=== PATIENT | male | born 1955 | race Caucasian/White ===

== ENCOUNTER 2017-10-21 04:19 | Emergency (ER) | payer SELFPAY ==
[2017-10-21] MEDS ORDERED: OXYMETAZOLINE HCL 0.05% NASAL SPRAY 15 ML BOTTLE NASL ONE (04:32)
--- NOTE | 2017-10-21 04:40 | ER Document Report ---
ED General - General Chief Complaint: Nose Bleed Stated Complaint: NOSE BLEED,BLOOD PRESSURE PROBLEMS Time Seen by Provider: 10/21/17 04:27 TRAVEL OUTSIDE OF THE [place] IN LAST 30 DAYS: No - HPI Notes: Patient is a 62-year-old male with a history of hypertension, not medicated, who presents to the ED complaining of a nosebleed that he has been unsuccessful at stopping that started about 4 hours ago. Patient states that he did have a nosebleed around 9 AM yesterday, but that stopped soon after. Patient states he otherwise feels well. He has been eating and drinking without difficulties. He is urinating normally and having normal bowel moods. He does not have any concern or complaint of pain. Denies any drug allergies. He is not on any blood thinning medications. Denies any headache, fever, head injury, neck pain , changes in vision/speech/mentation/hearing, URI, sore throat, chest pain, palpitations, syncope, cough, shortness of breath, wheeze, dyspnea, abdominal pain, nausea/vomiting/diarrhea, urinary retention, dysuria, hematuria, numbness/ tingling, muscle paralysis/weakness, or rash. - Related Data Allergies/Adverse Reactions: aspirin Allergy (Verified 10/21/17 04:35) NSAIDS (Non-Steroidal Anti-Inflamma Allergy (Verified 10/21/17 04:35) Past Medical History - Social History Smoking Status: Unknown if Ever Smoked Family History: Reviewed & Not Pertinent Patient has suicidal ideation: No Patient has homicidal ideation: No - Past Medical History Cardiac Medical History: Reports: Hx Hypertension Renal/ Medical History: Denies: Hx Peritoneal Dialysis Review of Systems - Review of Systems -: Yes All other systems reviewed and negative Physical Exam - Vital signs Vitals: Resp BP Pulse Ox 20 171/105 H 95 10/21/17 04:49 10/21/17 04:49 10/21/17 04:49 - Notes Notes: PHYSICAL EXAMINATION: GENERAL: Well-appearing, well-nourished and in no acute distress. A&Ox4. Answers questions appropriately. HEAD: Atraumatic, normocephalic. Non-tender. EYES: Pupils equal round and reactive to light, extraocular movements intact, sclera anicteric, conjunctiva are normal. ENT: Nares patent and with bloody discharge that appears to be lower and superficial at this time. oropharynx clear without exudates. No tonsilar hypertrophy or erythema. Moist mucous membranes. No sinus tenderness. NECK: Normal range of motion, supple without lymphadenopathy. No rigidity. No midline tenderness. LUNGS: Breath sounds clear to auscultation bilaterally and equal. No wheezes rales or rhonchi. HEART: Regular rate and rhythm without murmurs, rubs, gallops. Musculoskeletal: Ext b/l: FROM to passive/active. Strength 5+/5. No deficits noted. No bony tenderness of extremities. Extremities: No cyanosis, clubbing, or edema b/l. Peripheral pulses 2+. Capillary refill less than 2 seconds. NEUROLOGICAL: NIH 0. GCS 15. Cranial nerves grossly intact. Normal speech, normal gait. Normal sensory, motor exams. Reflexes 2+ b/l. KEVEN's negative. Pronator drift negative. Heel/mariano, finger/nose wnl. PSYCH: Normal mood, normal affect. SKIN: Warm, Dry, normal turgor, no rashes or lesions noted. Course - Re-evaluation Re-evalutation: 10/21/17 05:35 Patient is an afebrile, well-hydrated, 8-year-old male who presents to the ED and elevated blood pressure. Vitals are acceptable. PE is otherwise unremarkable. He has no significant tachycardia, tachypnea, or hypoxia. Aside from the bloody nose he is asymptomatic. Afrin and packing was utilized today successfully without any complications. Nosebleed resolved. Amlodipine 10 mg is also given. CBC, PT/INR/PTT, CMP were unremarkable for any acute pathology. No other labs or imaging warranted at this time based on H&P. Reviewed with Dr. Kiran who also eval'd the patient and is in agreement with dispo/plan. Patient will be going home with Afrin. Conservative measures otherwise for symptoms with close monitoring. Low suspicion for any sepsis, meningitis, severe dehydration, respiratory compromise, shock, or other systemic emergent condition at this time. Patient is aware that condition can change from initial presentation and he needs to monitor symptoms closely and seek medical attention with any acute changes. Recheck with your PCM in 3-5 days. Continually monitor your blood pressure. Return to the ED with any worsening/ concerning symptoms otherwise as reviewed discharge. Patient aware that he is at a higher risk for strokes and heart attacks with the elevated blood pressure. Patient is in agreement with plan. - Vital Signs Vital signs: Temp Pulse Resp BP Pulse Ox 20 171/105 H 95 10/21/17 04:50 10/21/17 04:49 10/21/17 04:50 - Laboratory Result Diagrams: 10/21/17 04:42 10/21/17 04:42 Laboratory results interpreted by me: 10/21/17 10/21/17 04:42 04:42 WBC 11.0 H Seg Neutrophils % 79.9 H Lymphocytes % 9.4 L Absolute Neutrophils 8.8 H Potassium 3.3 L Glucose 225 H Direct Bilirubin 0.5 H AST 91 H ALT 113 H Discharge - Discharge Clinical Impression: Nosebleed, Elevated blood pressure reading Condition: Stable Disposition: HOME, SELF-CARE Instructions: High Blood Pressure ([facility]), High Blood Pressure, Requiring Treatment ([facility]), Nosebleed Instructions ([facility]) Additional Instructions: Maintain adequate fluid and food intake Take home medications as directed Low sodium/fat diet Exercise regularly Weight control Monitor blood pressure daily and keep a log Monitor symptoms for any acute changes Recheck with your PCM in 3-5 days Consider a follow-up with cardiology Return to the ED with any worsening symptoms and/or development of fever, headache, chest pain, palpitations, syncope, shortness of breath, trouble breathing, abdominal pain, n/v/d, blood in stool/urine, loss of control of bowel/bladder, urinary retention, muscle weakness/paralysis, numbness/tingling, or other worsening symptoms that are concerning to you. Prescriptions: Amlodipine Besylate [Norvasc 10 mg Tablet] 10 mg PO DAILY #30 tablet Forms: Elevated Blood Pressure Referrals: [facility] [Provider Group] - Follow up as needed [facility] [Provider Group] - Follow up as needed
[2017-10-21 04:52] LABS: ABSOLUTE BASOPHILS # (AUTO) 0.1 10^3/uL (0.0-0.2); ABSOLUTE EOSINOPHILS # (AUTO) 0.1 10^3/uL (0.0-0.6); ABSOLUTE MONOCYTES (AUTO) 0.9 10^3/uL (0.1-1.4); ABSOLUTE NEUT (AUTO) 8.8 10^3/uL (1.7-8.2); BASOPHILS % (AUTO) 0.9 % (0-2); EOSINOPHILS % (AUTO) 1.3 % (0-6); HEMATOCRIT 41.7 % (37.9-51.0); HEMOGLOBIN 14.5 g/dL (13.5-17.0); LYMPHOCYTES % (AUTO) 9.4 % (13-45); MEAN CORPUSCULAR HEMOGLOBIN 32.2 pg (27.0-33.4); MEAN CORPUSCULAR HGB CONC 34.7 g/dL (32.0-36.0); MEAN CORPUSCULAR VOLUME 93 fl (80-97); MONOCYTES % (AUTO) 8.5 % (3-13); PLATELET COUNT 159 10^3/uL (150-450); RED BLOOD COUNT 4.51 10^6/uL (4.35-5.55); RED CELL DISTRIBUTION WIDTH 12.7 % (11.5-14.0); SEGMENTED NEUTROPHILS % (AUTO) 79.9 % (42-78); TOTAL CELLS COUNTED % (AUTO) 100 %
[2017-10-21] MEDS ORDERED: AMLODIPINE BESYLATE 10 MG TABLET PO ONE (04:55)
[2017-10-21 04:57] LABS: INTERNATIONAL RATION (INR) 1.06; PROTHROMBIN TIME 14.4 SEC (11.4-15.4)
[2017-10-21 04:58] LABS: PARTIAL THROMBOPLASTIN TIME 29.8 SEC (23.5-35.8)
[2017-10-21 05:07] LABS: ALANINE AMINOTRANSFERASE 113 U/L (21-72); ALBUMIN 3.9 g/dL (3.5-5.0); ALKALINE PHOSPHATASE 78 U/L (38-126); ANION GAP 18 (5-19); ASPARTATE AMINO TRANSFERASE 91 U/L (17-59); BILIRUBIN,DIRECT 0.5 mg/dL (0.0-0.4); BILIRUBIN,TOTAL 0.6 mg/dL (0.2-1.3); BLOOD UREA NITROGEN 20 mg/dL (7-20); CALCIUM 9.5 mg/dL (8.4-10.2); CARBON DIOXIDE 25 mmol/L (22-30); CHLORIDE 100 mmol/L (98-107); GLUCOSE 225 mg/dL (75-110); POTASSIUM 3.3 mmol/L (3.6-5.0); SODIUM 143.1 mmol/L (137-145)
[2017-10-21 06:04] VITALS: BP 176/99
== END 2017-10-21 06:04 | disposition home or self-care (01) ==
LOC: ER 04:19
DX: R04.0 Epistaxis (principal); I10 Essential (primary) hypertension; Z88.6 Allergy status to analgesic agent
CPT/HCPCS: 99283; 36415; 85025; 85610; 85730; 80053; J3490

== ENCOUNTER 2019-01-01 09:40 | Inpatient (IN) | payer SELFPAY ==
[2019-01-01] MEDS ORDERED: METOPROLOL TARTRATE PF/INJ 5 MG/5 ML SDV IV ONE (10:05)
[2019-01-01 10:16] LABS: HEMATOCRIT 34.7 % (37.9-51.0); HEMOGLOBIN 11.9 g/dL (13.5-17.0); MEAN CORPUSCULAR HEMOGLOBIN 32.6 pg (27.0-33.4); MEAN CORPUSCULAR HGB CONC 34.4 g/dL (32.0-36.0); MEAN CORPUSCULAR VOLUME 95 fl (80-97); RED BLOOD COUNT 3.67 10^6/uL (4.35-5.55); RED CELL DISTRIBUTION WIDTH 15.3 % (11.5-14.0); WHITE BLOOD COUNT 17.1 10^3/uL (4.0-10.5)
[2019-01-01 10:24] LABS: PROTHROMBIN TIME 15.3 SEC (11.4-15.4)
[2019-01-01 10:38] LABS: ALANINE AMINOTRANSFERASE 31 U/L (21-72); ALBUMIN 3.2 g/dL (3.5-5.0); ALKALINE PHOSPHATASE 132 U/L (38-126); ANION GAP 15 (5-19); ASPARTATE AMINO TRANSFERASE 64 U/L (17-59); BILIRUBIN,DIRECT 1.2 mg/dL (0.0-0.4); BILIRUBIN,TOTAL 1.9 mg/dL (0.2-1.3); BLOOD UREA NITROGEN 12 mg/dL (7-20); CALCIUM 8.2 mg/dL (8.4-10.2); CARBON DIOXIDE 33 mmol/L (22-30); CHLORIDE 81 mmol/L (98-107); CREATINE KINASE 28 U/L (55-170); GLUCOSE 144 mg/dL (75-110); TOTAL PROTEIN 7.3 g/dL (6.3-8.2)
--- NOTE | 2019-01-01 10:41 | RADIOLOGY REPORT (SQ) ---
EXAM DESCRIPTION: CHEST SINGLE VIEW COMPLETED DATE/TIME: 01/01/2019 10:30 am REASON FOR STUDY: Tachycardia, black tarry stools COMPARISON: None. EXAM PARAMETERS: NUMBER OF VIEWS: One view. TECHNIQUE: Single frontal radiographic view of the chest acquired. RADIATION DOSE: NA LIMITATIONS: None. FINDINGS: LUNGS AND PLEURA: There is blunting of left costophrenic angle. MEDIASTINUM AND HILAR STRUCTURES: No masses. Contour normal. HEART AND VASCULAR STRUCTURES: Heart normal in size. Normal vasculature. BONES: No acute findings. HARDWARE: None in the chest. OTHER: No other significant finding. IMPRESSION: There may be a small left pleural effusion. No acute cardiopulmonary findings. TECHNICAL DOCUMENTATION: JOB ID: [id number] [employer]- All Rights Reserved Reading location - IP/workstation name: [email or web address]
[2019-01-01 10:47] LABS: POTASSIUM 2.8 mmol/L (3.6-5.0)
[2019-01-01] MEDS ORDERED: POTASSIUM CHLORIDE 20 MEQ PACKET PO ONE (10:52)
[2019-01-01] MEDS ORDERED: THIAMINE HCL INJ 200 MG/2 ML VIAL IV ONE (10:52)
[2019-01-01 10:57] LABS: ABSOLUTE LYMPHOCYTES# (MANUAL) 0.2 10^3/uL (0.5-4.7); ABSOLUTE MONOCYTES # (MANUAL) 0.9 10^3/uL (0.1-1.4); BASOPHILS % (MANUAL) 0 % (0-2); EOSINOPHILS % (MANUAL) 0 % (0-6); LYMPHOCYTES % (MANUAL) 1 % (13-45); MONOCYTES % (MANUAL) 5 % (3-13); SEGMENTED NEUTROPHILS % (MAN) 94 % (42-78); TOTAL CELLS COUNTED 100
[2019-01-01 10:58] LABS: ANISOCYTOSIS SLIGHT; PLATELET CLUMPS PRESENT; PLATELET COMMENT ADEQUATE; PLATELET COUNT 225 10^3/uL (150-450); POLYCHROMASIA SLIGHT
[2019-01-01] MEDS ORDERED: ONDANSETRON HCL INJ/PF 4 MG/2 ML SDV IV ONE (11:12)
[2019-01-01] MEDS: MAGNESIUM SULFATE/D5W 1 GM/100 ML RTUPB IV SCH ×2 (11:15→12:26)
[2019-01-01] MEDS ORDERED: NORMAL SALINE 1000 ML 1,000 ML IV ONE (11:54)
--- NOTE | 2019-01-01 11:57 | ER Document Report ---
Entered by OLIVIA EMMANUEL SCRIBE 01/01/19 1004 Acting as scribe for:EYAL JI MD ED GI Bleed / Rectal Pain - General Chief Complaint: Black/Tarry Stools Stated Complaint: BLOODY STOOLS Time Seen by Provider: 01/01/19 09:53 Mode of Arrival: Medic Information source: Patient, Emergency Med Personnel, [facility] Records Notes: This 63-year-old male patient comes emergency room complaining of black tarry stools for the past 1 week. He also reports left lower quadrant abdominal pain that comes and goes. The patient did have a 6 vessel cardiac bypass in July 2018 at [facility]. He was on Lipitor, metoprolol, and a baby aspirin postoperatively. He ran out of the metoprolol and Lipitor at least a week or more ago. He stopped taking the aspirin last week when he noted his black tarry stools. He reports he had an episode of black tarry stool several years ago that was due to a bleeding ulcer. The patient reports his last alcoholic drink was 1 ounce of vodka this morning. TRAVEL OUTSIDE OF THE [place] IN LAST 30 DAYS: No - Related Data Allergies/Adverse Reactions: aspirin Allergy (Verified 10/21/17 04:35) NSAIDS (Non-Steroidal Anti-Inflamma Allergy (Verified 10/21/17 04:35) Past Medical History - Social History Smoking Status: Never Smoker Frequency of alcohol use: Social Drug Abuse: None Family History: Reviewed & Not Pertinent Patient has suicidal ideation: No Patient has homicidal ideation: No - Past Medical History Cardiac Medical History: Reports: Hx Hypertension Renal/ Medical History: Denies: Hx Peritoneal Dialysis Review of Systems - Review of Systems Constitutional: No symptoms reported EENT: No symptoms reported Cardiovascular: No symptoms reported Respiratory: No symptoms reported Gastrointestinal: See HPI, Abdominal pain, Black stools, Rectal bleeding Genitourinary: No symptoms reported Male Genitourinary: No symptoms reported Musculoskeletal: No symptoms reported Skin: No symptoms reported Hematologic/Lymphatic: No symptoms reported Neurological/Psychological: No symptoms reported -: Yes All other systems reviewed and negative Physical Exam - Vital signs Vitals: Resp Pulse Ox 28 H 93 01/01/19 09:48 01/01/19 09:48 - Notes Notes: Physical Exam: General: Alert, appears well. HEENT: Normocephalic. Atraumatic. PERRL. Extraocular movements intact. Oropharynx clear. Conjunctiva are normal color. Neck: Supple. Non-tender. Respiratory: No respiratory distress. Clear and equal breath sounds bilaterally. Healed midline sternotomy scar consistent with surgical history. Cardiovascular: Tachycardic into the 140s. Abdominal: Large infraumbilical ventral hernia that is easily reducible. Left lower quadrant tenderness to palpation. No distension. Normal Bowel Sounds. Rectal: No stool in rectal vault. Heme-negative residue. No external hemorrhoids. One skin tag. Back: Grossly normal Extremities: Moves all four extremities. Upper extremities: Normal inspection. Normal ROM. Lower extremities: Normal inspection. No edema. Normal ROM. Neurological: Normal cognition. AAOx4. Normal speech. Psychological: Normal affect. Normal Mood. Skin: Warm. Dry. Pale. Course - Re-evaluation Re-evalutation: 01/01/19 13:10 After the IV fluids and IV metoprolol, patient's heart rate is now down to 108 with a blood pressure of 130/81. - Vital Signs Vital signs: Temp Pulse Resp BP Pulse Ox 98.8 F 113 H 16 140/85 H 95 01/01/19 09:53 01/01/19 10:16 01/01/19 11:30 01/01/19 11:30 01/01/19 11:30 - Laboratory Result Diagrams: 01/01/19 09:51 01/01/19 09:51 Laboratory results interpreted by me: 01/01/19 01/01/19 09:51 09:51 WBC 17.1 H RBC 3.67 L Hgb 11.9 L Hct 34.7 L RDW 15.3 H Seg Neuts % (Manual) 94 H Lymphocytes % (Manual) 1 L Abs Neuts (Manual) 16.1 H Abs Lymphs (Manual) 0.2 L Sodium 128.6 L Potassium 2.8 L* Chloride 81 L Carbon Dioxide 33 H Glucose 144 H Calcium 8.2 L Magnesium 1.0 L* Total Bilirubin 1.9 H Direct Bilirubin 1.2 H AST 64 H Alkaline Phosphatase 132 H Creatine Kinase 28 L Albumin 3.2 L - Diagnostic Test Radiology reviewed: Image reviewed, Reports reviewed - There may be a small left pleural effusion. No acute changes in the chest. - EKG Interpretation by Me EKG shows normal: Sinus rhythm, [place], Intervals, ST-T Waves. abnormal: QRS Complexes - Borderline R wave progression in the anterior leads Rate: Tachycardia - 137 Rhythm: PVC's When compared to previous EKG there are: Previous EKG unavailable - Consults Avelina Contreras NP Time consulted: 13:00 Consulted provider: will come to ER Critical Care Note - Critical Care Note Total time excluding time spent on procedures (mins): 40 Discharge - Discharge Clinical Impression: Tachycardia, Hypomagnesemia, Hypokalemia, Hyponatremia, History of bloody stools, Alcoholism /alcohol abuse, Has run out of medications Hypertension Qualifiers: Hypertension type: essential hypertension Qualified Code(s): I10 - Essential (primary) hypertension Coronary artery disease Qualifiers: Coronary Disease-Associated Artery/Lesion type: bypass graft [place] vs. transplanted heart: [place] heart Associated angina: without angina Qualified Code(s): I25.810 - Atherosclerosis of coronary artery bypass graft(s) without angina pectoris Anemia Qualifiers: Anemia type: unspecified type Qualified Code(s): D64.9 - Anemia, unspecified Leukocytosis Qualifiers: Leukocytosis type: unspecified Qualified Code(s): D72.829 - Elevated white blood cell count, unspecified Condition: Good Disposition: ADMITTED INPATIENT Admitting Provider: Stefanie (Hospitalist) Unit Admitted: Telemetry Scribe Attestation: 01/01/19 11:02 I personally performed the services described in the documentation, reviewed and edited the documentation which was dictated to the scribe in my presence, and it accurately records my words and actions. I personally performed the services described in the documentation, reviewed and edited the documentation which was dictated to the scribe in my presence, and it accurately records my words and actions.
[2019-01-01] MEDS ORDERED: ACETAMINOPHEN 325 MG TABLET PO PRN (13:23)
[2019-01-01] MEDS ORDERED: MAGNESIUM HYDROXIDE SUSP 30 ML UDCUP PO PRN (13:23)
[2019-01-01] MEDS ORDERED: ONDANSETRON HCL INJ/PF 4 MG/2 ML SDV IV PRN (13:23)
[2019-01-01] MEDS ORDERED: LORAZEPAM INJ 2 MG/1 ML VIAL IV PRN (13:29)
[2019-01-01] MEDS ORDERED: POTASSIUM CHLORIDE 10 MEQ CAPSULE.ER PO ONE ×2 (14:00→19:00)
[2019-01-01] MEDS ORDERED: MAGNESIUM SULFATE 4 GM/100 ML RTUPB IV ONE ×2 (14:30→19:02)
--- NOTE | 2019-01-01 14:30 | EKG REPORT ---
SEVERITY:- BORDERLINE ECG - SINUS TACHYCARDIA BORDERLINE R WAVE PROGRESSION, ANTERIOR LEADS : Confirmed by: Nani Snell MD 01-Jan-2019 14:30:07
[2019-01-01] MEDS: POTASSI CL 20 MEQ/NS 1L 1,000 ML IV PRN (15:46)
[2019-01-01] MEDS: HEPARIN SOD (PORCINE) 5,000 UNIT/ML 1 ML VIAL SUBCUT SCH ×2 (15:48→22:06)
--- NOTE | 2019-01-01 16:27 | PDOC H&P ---
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 He underwent work-up in the ER emergency room which found him to have significant electrolyte derangement. His stool was guaiac negative for heme. He was found to be tachycardic on his arrival. Upon further investigation, as he has not had his metoprolol in over 3 months time. There is no signs of anemia or infection. He does admit to regular frequent alcohol use. His last drink was this morning he had 1 ounce of vodka. His thought processes are quite disjointed. He denies any nausea, vomiting or diarrhea. He presently denies any abdominal pain when I asked him. He has a friend at the bedside. He has been referred to the hospitalist service for admission for electrolyte derangement. He was found to have a sodium of 127. Potassium was 2.8 and magnesium was 1.0. Past Medical History Cardiac Medical History: Reports: Myocardial Infarction, Hypertension Pulmonary Medical History: Reports: None EENT Medical History: Reports: None Neurological Medical History: Reports: None Endocrine Medical History: Reports: None Renal/ Medical History: Reports: None Malignancy Medical History: Reports: Bone Cancer GI Medical History: Reports: None, Other - Reports having a bleeding ulcer many years ago. He therefore took himself Hematology: Reports: Anemia Social History Information Source: Patient Lives with: Alone Smoking Status: Never Smoker Frequency of Alcohol Use: Heavy Amount of Alcoholic Beverages Per Day: 1-3 Last Alcohol Use: 01/01/19 - 1 ounce of vodka this morning Hx Recreational Drug Use: No Drugs: None - Advance Directive Resuscitation Status: Full Code Surrogate healthcare decision maker:: He denies any close relatives. Family History Family History: CAD, Hypertension Parental Family History Reviewed: Yes Children Family History Reviewed: No Sibling(s) Family History Reviewed.: Yes Medication/Allergy Home Medications: Metoprolol Tartrate [Lopressor 50 mg Tablet] 50 mg PO Q12 01/01/19 Allergies/Adverse Reactions: aspirin Allergy (Verified 05/22/18 04:35) NSAIDS (Non-Steroidal Anti-Inflamma Allergy (Verified 10/21/17 04:35) Review of Systems Constitutional: PRESENT: anorexia Eyes: ABSENT: visual disturbances Ears: ABSENT: hearing changes Cardiovascular: ABSENT: chest pain, dyspnea on exertion, edema, orthropnea, palpitations Respiratory: ABSENT: cough, hemoptysis Gastrointestinal: PRESENT: abdominal pain, melena, nausea. ABSENT: constipation, diarrhea, hematemesis, hematochezia, vomiting Genitourinary: ABSENT: dysuria, hematuria Musculoskeletal: PRESENT: as per HPI Integumentary: ABSENT: rash, wounds Neurological: ABSENT: abnormal gait, abnormal speech, confusion, dizziness, focal weakness, syncope Psychiatric: ABSENT: anxiety, depression, homidical ideation, suicidal ideation Endocrine: ABSENT: cold intolerance, heat intolerance, polydipsia, polyuria Hematologic/Lymphatic: ABSENT: easy bleeding, easy bruising Physical Exam Vital Signs: Temp Pulse Resp BP Pulse Ox 98.8 F 113 H 21 H 127/68 H 96 01/01/19 09:53 01/01/19 10:16 01/01/19 14:01 01/01/19 14:00 01/01/19 14:01 Intake & Output 12/31/18 01/01/19 01/02/19 06:59 06:59 06:59 Intake Total 1200 Balance 1200 Weight 85.729 kg General appearance: PRESENT: no acute distress, well-developed, well-nourished, other - disheveled Head exam: PRESENT: atraumatic, normocephalic Eye exam: PRESENT: conjunctiva pink, EOMI, PERRLA. ABSENT: scleral icterus Ear exam: PRESENT: normal external ear exam Mouth exam: PRESENT: moist, tongue midline Neck exam: ABSENT: carotid bruit, JVD, lymphadenopathy, thyromegaly Respiratory exam: PRESENT: clear to auscultation kenny. ABSENT: rales, rhonchi, wheezes Cardiovascular exam: PRESENT: RRR, tachycardia. ABSENT: diastolic murmur, rubs, systolic murmur Pulses: PRESENT: normal dorsalis pedis pul Vascular exam: PRESENT: normal capillary refill GI/Abdominal exam: PRESENT: normal bowel sounds, soft. ABSENT: distended, guarding, mass, organolmegaly, rebound, tenderness Rectal exam: PRESENT: deferred Extremities exam: PRESENT: full ROM. ABSENT: calf tenderness, clubbing, pedal edema Musculoskeletal exam: PRESENT: ambulatory, full ROM Neurological exam: PRESENT: alert, awake, oriented to person, oriented to place, oriented to time, oriented to situation, CN II-XII grossly intact. ABSENT: motor sensory deficit Psychiatric exam: PRESENT: appropriate affect, normal mood. ABSENT: homicidal ideation, suicidal ideation Skin exam: PRESENT: dry, intact, warm. ABSENT: cyanosis, rash Results Laboratory Results: 01/01/19 09:51 01/01/19 09:51 01/01/19 01/01/19 01/01/19 09:51 09:51 09:51 WBC 17.1 H RBC 3.67 L Hgb 11.9 L Hct 34.7 L MCV 95 MCH 32.6 MCHC 34.4 RDW 15.3 H Plt Count 225 Seg Neutrophils % Not Reportable Lymphocytes % Not Reportable Monocytes % Not Reportable Eosinophils % Not Reportable Basophils % Not Reportable Absolute Neutrophils Not Reportable Absolute Lymphocytes Not Reportable Absolute Monocytes Not Reportable Absolute Eosinophils Not Reportable Absolute Basophils Not Reportable Sodium 128.6 L Potassium 2.8 L* Chloride 81 L Carbon Dioxide 33 H Anion Gap 15 BUN 12 Creatinine 0.97 Est GFR ( Amer) > 60 Est GFR (Non-Af Amer) > 60 Glucose 144 H Lactic Acid 1.8 Calcium 8.2 L Magnesium 1.0 L* Total Bilirubin 1.9 H AST 64 H ALT 31 Alkaline Phosphatase 132 H Total Protein 7.3 Albumin 3.2 L Lipase Blood Type Antibody Screen 01/01/19 01/01/19 09:51 09:51 WBC RBC Hgb Hct MCV MCH MCHC RDW Plt Count Seg Neutrophils % Lymphocytes % Monocytes % Eosinophils % Basophils % Absolute Neutrophils Absolute Lymphocytes Absolute Monocytes Absolute Eosinophils Absolute Basophils Sodium Potassium Chloride Carbon Dioxide Anion Gap BUN Creatinine Est GFR ( Amer) Est GFR (Non-Af Amer) Glucose Lactic Acid Calcium Magnesium Total Bilirubin AST ALT Alkaline Phosphatase Total Protein Albumin Lipase 107.3 Blood Type A POSITIVE Antibody Screen NEGATIVE 01/01/19 01/01/19 09:51 09:51 Creatine Kinase 28 L Troponin I 0.014 Impressions: Chest X-Ray 01/01/19 10:05 IMPRESSION: There may be a small left pleural effusion. No acute cardiopulmonary findings. Assessment and Plan - Diagnosis (1) Hyponatremia Is this a current diagnosis for this admission?: Yes Plan: Likely secondary to alcohol abuse and poor oral intake. We will hydrate with IV normal saline and monitor. (2) Hypokalemia Is this a current diagnosis for this admission?: Yes Plan: Will replete with oral and IV potassium and monitor BMP (3) Hypomagnesemia Is this a current diagnosis for this admission?: Yes Plan: Likely secondary to chronic alcohol abuse. Will replete and monitor. (4) Leukocytosis Qualifiers: Leukocytosis type: unspecified Qualified Code(s): D72.829 - Elevated white blood cell count, unspecified Is this a current diagnosis for this admission?: Yes Plan: No obvious signs of infection. This can be from dehydration. We will continue to monitor. (5) Anemia Qualifiers: Anemia type: unspecified type Qualified Code(s): D64.9 - Anemia, unspecified Is this a current diagnosis for this admission?: Yes Plan: It is presently 11.7. He was 16 a year ago when he was here. (6) Alcoholism /alcohol abuse Is this a current diagnosis for this admission?: Yes Plan: We will place patient on [facility] protocol. Banana bag daily. (7) Coronary artery disease Qualifiers: Coronary Disease-Associated Artery/Lesion type: bypass graft [place] vs. transplanted heart: [place] heart Associated angina: without angina Qualified Code(s): I25.810 - Atherosclerosis of coronary artery bypass graft(s) without angina pectoris Is this a current diagnosis for this admission?: Yes Plan: Reorder his metoprolol, atorvastatin and enteric-coated baby aspirin. (8) Has run out of medications Is this a current diagnosis for this admission?: Yes Plan: As above. He states he has no primary care provider. We have asked case management to assist him with this process post discharge so we do not run into the same problem down the road (9) History of bloody stools Is this a current diagnosis for this admission?: Yes Plan: Stool is brown and heme negative. Will start on oral protonix and monitor (10) Hypertension Qualifiers: Hypertension type: essential hypertension Is this a current diagnosis for this admission?: Yes Plan: We will resume metoprolol at 25 mg twice daily. Blood pressures 130s to 140s now systolically. (11) Tachycardia Is this a current diagnosis for this admission?: Yes Plan: Contrary to dehydration and lack of metoprolol - Time Time Spent with patient: 35 or more minutes Total Critical Time (Minutes): 30 Medications reviewed and adjusted accordingly: Yes Anticipated discharge: Home with Homehealth Within: within 48 hours - Inpatient Certification Based on my medical assessment, after consideration of the patient's comorbiditi es, presenting symptoms, or acuity I expect that the services needed warrant INPATIENT care.: Yes I certify that my determination is in accordance with my understanding of [facility]'s requirements for reasonable and necessary INPATIENT services [42 CFR 412.3e].: Yes Medical Necessity: Need For IV Fluids, Need For Continuous Telemetry Monitoring, Risk of Complication if Not Cared For in Hospital
[2019-01-01 17:17] LABS: ANION GAP 9 (5-19); BLOOD UREA NITROGEN 13 mg/dL (7-20); CALCIUM 7.3 mg/dL (8.4-10.2); CARBON DIOXIDE 30 mmol/L (22-30); CHLORIDE 86 mmol/L (98-107); GLUCOSE 152 mg/dL (75-110)
[2019-01-01 17:20] LABS: POTASSIUM 2.8 mmol/L (3.6-5.0)
[2019-01-01] MEDS: PANTOPRAZOLE SODIUM 40 MG TABLET.DR PO SCH (17:50)
[2019-01-01] MEDS: LORAZEPAM 1 MG TABLET (TAPER DOSING) PO SCH (17:50)
[2019-01-01] MEDS: DOCUSATE SODIUM 100 MG CAPSULE PO SCH (17:51)
[2019-01-01] MEDS ORDERED: POTASSI CL 20 MEQ/50 ML RIDER 20 MEQ/50 ML RTUPB IV ONE (19:00)
[2019-01-01] MEDS ORDERED: POTASSIUM CHLORIDE 20 MEQ/50 ML RTU IV ONE (22:00)
[2019-01-01] MEDS: ATORVASTATIN CALCIUM 40 MG TABLET PO SCH (22:04)
[2019-01-01] MEDS: METOPROLOL TARTRATE 25 MG TABLET PO SCH (22:04)
[2019-01-01 23:40] LABS: APPEARANCE,URINE CLEAR; BILIRUBIN,URINE NEGATIVE (NEGATIVE); COLOR,URINE YELLOW; GLUCOSE, URINE NEGATIVE (NEGATIVE); KETONES,URINE NEGATIVE (NEGATIVE); LEUKOCYTE ESTERASE,URINE TRACE (NEGATIVE); NITRITE,URINE NEGATIVE (NEGATIVE); PROTEIN,URINE NEGATIVE (NEGATIVE); URINE SPECIFIC GRAVITY 1.005; UROBILINOGEN,URINE NEGATIVE mg/dL (<2.0)
[2019-01-02] MEDS: LORAZEPAM 1 MG TABLET (TAPER DOSING) PO SCH ×4 (00:17→21:22)
[2019-01-02] MEDS: HEPARIN SOD (PORCINE) 5,000 UNIT/ML 1 ML VIAL SUBCUT SCH ×3 (06:52→21:22)
[2019-01-02] MEDS: PANTOPRAZOLE SODIUM 40 MG TABLET.DR PO SCH ×2 (06:52→17:36)
[2019-01-02 06:55] LABS: ABSOLUTE EOSINOPHILS # (AUTO) 0.1 10^3/uL (0.0-0.6); ABSOLUTE LYMPHOCYTES (AUTO) 0.7 10^3/uL (0.5-4.7); ABSOLUTE MONOCYTES (AUTO) 1.4 10^3/uL (0.1-1.4); ABSOLUTE NEUT (AUTO) 8.6 10^3/uL (1.7-8.2); BASOPHILS % (AUTO) 0.2 % (0-2); EOSINOPHILS % (AUTO) 0.7 % (0-6); HEMATOCRIT 30.8 % (37.9-51.0); HEMOGLOBIN 10.6 g/dL (13.5-17.0); LYMPHOCYTES % (AUTO) 6.7 % (13-45); MEAN CORPUSCULAR HEMOGLOBIN 32.8 pg (27.0-33.4); MEAN CORPUSCULAR HGB CONC 34.5 g/dL (32.0-36.0); MEAN CORPUSCULAR VOLUME 95 fl (80-97); MONOCYTES % (AUTO) 13.4 % (3-13); PLATELET COUNT 184 10^3/uL (150-450); RED BLOOD COUNT 3.23 10^6/uL (4.35-5.55); RED CELL DISTRIBUTION WIDTH 15.5 % (11.5-14.0); TOTAL CELLS COUNTED % (AUTO) 100 %; WHITE BLOOD COUNT 10.8 10^3/uL (4.0-10.5)
[2019-01-02 07:22] LABS: ANION GAP 8 (5-19); BLOOD UREA NITROGEN 13 mg/dL (7-20); CALCIUM 7.5 mg/dL (8.4-10.2); CARBON DIOXIDE 31 mmol/L (22-30); CHLORIDE 93 mmol/L (98-107); CHOLESTEROL 82.62 mg/dL (0-200); GLUCOSE 116 mg/dL (75-110); POTASSIUM 3.2 mmol/L (3.6-5.0); TRIGLYCERIDES 112 mg/dL (<150)
[2019-01-02 07:32] LABS: DIRECT LDL 56 mg/dL (<100)
[2019-01-02] MEDS: POTASSI CL 20 MEQ/NS 1L 1,000 ML IV PRN ×2 (08:30→17:36)
[2019-01-02] MEDS: ASPIRIN 81 MG TABLET, ENT COATED PO SCH (10:07)
[2019-01-02] MEDS: METOPROLOL TARTRATE 25 MG TABLET PO SCH ×2 (10:07→21:23)
[2019-01-02] MEDS: DOCUSATE SODIUM 100 MG CAPSULE PO SCH ×2 (10:08→17:36)
[2019-01-02] MEDS ORDERED: POTASSIUM CHLORIDE 10 MEQ CAPSULE.ER PO ONE (12:41)
--- NOTE | 2019-01-02 14:22 | PDOC PROGRESS REPORT ---
Subjective Progress Note for:: 01/02/19 Subjective:: Patient seen resting in bed. He is awake, alert, oriented x3. He denies any chest pain, shortness of breath or dyspnea. He denies any nausea, vomiting or abdominal pain. He denies any fevers or chills overnight. He has had no further melena. Denies any significant arthralgias or myalgias. He verbalizes no other complaints. Remaining review of systems are negative. Reason For Visit: HYPOKALEMIA,HYPONATREMIA,ETOH ABUSE Physical Exam Vital Signs: Temp Pulse Resp BP Pulse Ox 97.8 F 96 21 H 134/73 H 99 01/02/19 12:00 01/02/19 12:00 01/02/19 12:00 01/02/19 12:00 01/02/19 03:20 Intake & Output 01/01/19 01/02/19 01/03/19 06:59 06:59 06:59 Intake Total 2672 Output Total 500 Balance 2172 Weight 84.9 kg General appearance: PRESENT: no acute distress, well-developed, well-nourished Head exam: PRESENT: atraumatic, normocephalic Eye exam: PRESENT: conjunctiva pink, EOMI, PERRLA. ABSENT: scleral icterus Ear exam: PRESENT: normal external ear exam Mouth exam: PRESENT: moist, tongue midline Neck exam: ABSENT: carotid bruit, JVD, lymphadenopathy, thyromegaly Respiratory exam: PRESENT: clear to auscultation kenny. ABSENT: rales, rhonchi, wheezes Cardiovascular exam: PRESENT: RRR. ABSENT: diastolic murmur, rubs, systolic murmur Pulses: PRESENT: normal dorsalis pedis pul Vascular exam: PRESENT: normal capillary refill GI/Abdominal exam: PRESENT: normal bowel sounds, soft. ABSENT: distended, guarding, mass, organolmegaly, rebound, tenderness Rectal exam: PRESENT: deferred Extremities exam: PRESENT: full ROM. ABSENT: calf tenderness, clubbing, pedal edema Neurological exam: PRESENT: alert, awake, oriented to person, oriented to place, oriented to time, CN II-XII grossly intact. ABSENT: motor sensory deficit Psychiatric exam: PRESENT: appropriate affect, normal mood. ABSENT: homicidal ideation, suicidal ideation Skin exam: PRESENT: dry, intact, warm. ABSENT: cyanosis, rash Results Laboratory Results: 01/02/19 06:24 01/02/19 06:24 01/01/19 01/01/19 01/02/19 16:55 23:06 06:24 WBC 10.8 H RBC 3.23 L Hgb 10.6 L Hct 30.8 L MCV 95 MCH 32.8 MCHC 34.5 RDW 15.5 H Plt Count 184 Seg Neutrophils % 79.0 H Lymphocytes % 6.7 L Monocytes % 13.4 H Eosinophils % 0.7 Basophils % 0.2 Absolute Neutrophils 8.6 H Absolute Lymphocytes 0.7 Absolute Monocytes 1.4 Absolute Eosinophils 0.1 Absolute Basophils 0.0 Sodium 125.3 L Potassium 2.8 L* Chloride 86 L Carbon Dioxide 30 Anion Gap 9 BUN 13 Creatinine 0.91 Est GFR ( Amer) > 60 Est GFR (Non-Af Amer) > 60 Glucose 152 H Calcium 7.3 L Magnesium Ammonia Triglycerides Cholesterol LDL Cholesterol Direct VLDL Cholesterol HDL Cholesterol TSH Urine Color YELLOW Urine Appearance CLEAR Urine pH 5.0 Ur Specific [place] 1.005 Urine Protein NEGATIVE Urine Glucose (UA) NEGATIVE Urine Ketones NEGATIVE Urine Blood SMALL H Urine Nitrite NEGATIVE Ur Leukocyte Esterase TRACE H Urine WBC (Auto) 13 Urine RBC (Auto) 0 01/02/19 01/02/19 01/02/19 06:24 06:24 06:24 WBC RBC Hgb Hct MCV MCH MCHC RDW Plt Count Seg Neutrophils % Lymphocytes % Monocytes % Eosinophils % Basophils % Absolute Neutrophils Absolute Lymphocytes Absolute Monocytes Absolute Eosinophils Absolute Basophils Sodium 131.6 L Potassium 3.2 L Chloride 93 L Carbon Dioxide 31 H Anion Gap 8 BUN 13 Creatinine 0.94 Est GFR ( Amer) > 60 Est GFR (Non-Af Amer) > 60 Glucose 116 H Calcium 7.5 L Magnesium 2.8 H D Ammonia < 8.7 L Triglycerides 112 Cholesterol 82.62 LDL Cholesterol Direct 56 VLDL Cholesterol 22.0 HDL Cholesterol 15 L TSH 0.21 L Urine Color Urine Appearance Urine pH Ur Specific [place] Urine Protein Urine Glucose (UA) Urine Ketones Urine Blood Urine Nitrite Ur Leukocyte Esterase Urine WBC (Auto) Urine RBC (Auto) 01/01/19 01/01/19 01/02/19 09:51 09:51 06:24 Creatine Kinase 28 L Troponin I 0.014 NT-Pro-B Natriuret Pep 520 Impressions: Chest X-Ray 01/01/19 10:05 IMPRESSION: There may be a small left pleural effusion. No acute cardiopulmonary findings. Assessment and Plan - Diagnosis (1) Hyponatremia Is this a current diagnosis for this admission?: Yes Plan: Gradually improved. Up to 131.6 this morning. Likely secondary to alcohol abu se and poor oral intake. We will hydrate with IV normal saline and monitor. (2) Hypokalemia Is this a current diagnosis for this admission?: Yes Plan: Will replete with oral and IV potassium and monitor BMP (3) Hypomagnesemia Is this a current diagnosis for this admission?: Yes Plan: Likely secondary to chronic alcohol abuse. Will replete and monitor. (4) Leukocytosis Qualifiers: Leukocytosis type: unspecified Qualified Code(s): D72.829 - Elevated white blood cell count, unspecified Is this a current diagnosis for this admission?: Yes Plan: No obvious signs of infection. Likely from mild dehydration. Improved with IV fluids. We will continue to monitor. (5) Anemia Qualifiers: Anemia type: unspecified type Qualified Code(s): D64.9 - Anemia, unspecif ied Is this a current diagnosis for this admission?: Yes Plan: It is presently 11.7. He was 16 a year ago when he was here. (6) Alcoholism /alcohol abuse Is this a current diagnosis for this admission?: Yes Plan: We will place patient on [facility] protocol. Banana bag daily. (7) Coronary artery disease Qualifiers: Coronary Disease-Associated Artery/Lesion type: bypass graft [place] vs. transplanted heart: [place] heart Associated angina: without angina Qualified Code(s): I25.810 - Atherosclerosis of coronary artery bypass graft(s) without angina pectoris Is this a current diagnosis for this admission?: Yes Plan: Reorder his metoprolol, atorvastatin and enteric-coated baby aspirin. (8) Has run out of medications Is this a current diagnosis for this admission?: Yes Plan: As above. He states he has no primary care provider. We have asked case management to assist him with this process post discharge so we do not run into the same problem down the road (9) History of bloody stools Is this a current diagnosis for this admission?: Yes Plan: Stool is brown and heme negative. Will start on oral protonix and monitor (10) Hypertension Qualifiers: Hypertension type: essential hypertension Qualified Code(s): I10 - Essential (primary) hypertension Is this a current diagnosis for this admission?: Yes Plan: We will resume metoprolol at 25 mg twice daily. Blood pressures 130s to 140s now systolically. (11) Tachycardia Is this a current diagnosis for this admission?: Yes Plan: Contrary to dehydration and lack of metoprolol - Time Time Spent with patient: 25-34 minutes Total Critical Time (Minutes): 25 Medications reviewed and adjusted accordingly: Yes Anticipated discharge: Home Within: within 24 hours
[2019-01-02] MEDS: ATORVASTATIN CALCIUM 40 MG TABLET PO SCH (21:23)
[2019-01-03] MEDS: LORAZEPAM 1 MG TABLET (TAPER DOSING) PO SCH ×3 (04:46→19:14)
[2019-01-03 05:42] LABS: ABSOLUTE BASOPHILS # (AUTO) 0.1 10^3/uL (0.0-0.2); ABSOLUTE EOSINOPHILS # (AUTO) 0.1 10^3/uL (0.0-0.6); ABSOLUTE LYMPHOCYTES (AUTO) 0.9 10^3/uL (0.5-4.7); ABSOLUTE MONOCYTES (AUTO) 0.9 10^3/uL (0.1-1.4); ABSOLUTE NEUT (AUTO) 7.6 10^3/uL (1.7-8.2); BASOPHILS % (AUTO) 0.7 % (0-2); EOSINOPHILS % (AUTO) 1.5 % (0-6); HEMATOCRIT 29.5 % (37.9-51.0); HEMOGLOBIN 10.1 g/dL (13.5-17.0); LYMPHOCYTES % (AUTO) 9.2 % (13-45); MEAN CORPUSCULAR HEMOGLOBIN 32.7 pg (27.0-33.4); MEAN CORPUSCULAR VOLUME 96 fl (80-97); MONOCYTES % (AUTO) 9.6 % (3-13); PLATELET COUNT 199 10^3/uL (150-450); RED BLOOD COUNT 3.07 10^6/uL (4.35-5.55); RED CELL DISTRIBUTION WIDTH 15.2 % (11.5-14.0); TOTAL CELLS COUNTED % (AUTO) 100 %; WHITE BLOOD COUNT 9.6 10^3/uL (4.0-10.5)
[2019-01-03] MEDS: HEPARIN SOD (PORCINE) 5,000 UNIT/ML 1 ML VIAL SUBCUT SCH ×3 (05:44→21:57)
[2019-01-03] MEDS: PANTOPRAZOLE SODIUM 40 MG TABLET.DR PO SCH ×2 (05:44→17:37)
[2019-01-03 06:05] LABS: BLOOD UREA NITROGEN 11 mg/dL (7-20); CALCIUM 7.6 mg/dL (8.4-10.2); GLUCOSE 120 mg/dL (75-110); POTASSIUM 3.8 mmol/L (3.6-5.0)
[2019-01-03 06:10] LABS: ANION GAP 6 (5-19); CARBON DIOXIDE 33 mmol/L (22-30); CHLORIDE 94 mmol/L (98-107)
[2019-01-03] MEDS: POTASSI CL 20 MEQ/NS 1L 1,000 ML IV PRN (07:24)
[2019-01-03] MEDS: NORMAL SALINE 1000 ML 1,000 ML with POTASSIUM CHLORIDE 20 MEQ, MAGNESIUM SULFATE 8 MEQ,... IV SCH ×5 (10:26)
[2019-01-03] MEDS: ASPIRIN 81 MG TABLET, ENT COATED PO SCH (12:23)
[2019-01-03] MEDS: DOCUSATE SODIUM 100 MG CAPSULE PO SCH ×2 (12:23→17:37)
[2019-01-03] MEDS: METOPROLOL TARTRATE 25 MG TABLET PO SCH ×2 (12:23→21:57)
--- NOTE | 2019-01-03 14:28 | PDOC PROGRESS REPORT ---
Subjective Progress Note for:: 01/03/19 Subjective:: Patient seen resting in bed. He is awake, alert, oriented x3. He denies any chest pain, shortness of breath or dyspnea. He denies any nausea, vomiting or abdominal pain. He denies any fevers or chills overnight. He has had no further melena. Denies any significant arthralgias or myalgias. He verbalizes no other complaints. Remaining review of systems are negative. Reason For Visit: HYPOKALEMIA,HYPONATREMIA,ETOH ABUSE Physical Exam Vital Signs: Temp Pulse Resp BP Pulse Ox 97.4 F 93 16 147/75 H 98 01/03/19 11:18 01/03/19 11:18 01/03/19 07:35 01/03/19 11:18 01/03/19 11:18 Intake & Output 01/02/19 01/03/19 01/04/19 06:59 06:59 06:59 Intake Total 2672 2600 120 Output Total 500 710 Balance 2172 1890 120 Weight 84.9 kg 88.9 kg General appearance: PRESENT: no acute distress, well-developed, well-nourished Head exam: PRESENT: atraumatic, normocephalic Eye exam: PRESENT: conjunctiva pink, EOMI, PERRLA. ABSENT: scleral icterus Ear exam: PRESENT: normal external ear exam Mouth exam: PRESENT: moist, tongue midline Teeth exam: PRESENT: poor dentation Neck exam: ABSENT: carotid bruit, JVD, lymphadenopathy, thyromegaly Respiratory exam: PRESENT: clear to auscultation kenny. ABSENT: rales, rhonchi, wheezes Cardiovascular exam: PRESENT: RRR. ABSENT: diastolic murmur, rubs, systolic murmur Pulses: PRESENT: normal dorsalis pedis pul Vascular exam: PRESENT: normal capillary refill GI/Abdominal exam: PRESENT: normal bowel sounds, soft. ABSENT: distended, guarding, mass, organolmegaly, rebound, tenderness Rectal exam: PRESENT: deferred Extremities exam: PRESENT: full ROM. ABSENT: calf tenderness, clubbing, pedal edema Neurological exam: PRESENT: alert, awake, oriented to person, oriented to place, oriented to time, oriented to situation, CN II-XII grossly intact. ABSENT: motor sensory deficit Psychiatric exam: PRESENT: appropriate affect, normal mood. ABSENT: homicidal ideation, suicidal ideation Skin exam: PRESENT: dry, intact, warm. ABSENT: cyanosis, rash Results Laboratory Results: 01/03/19 05:28 01/03/19 05:28 01/03/19 01/03/19 05:28 05:28 WBC 9.6 RBC 3.07 L Hgb 10.1 L Hct 29.5 L MCV 96 MCH 32.7 MCHC 34.0 RDW 15.2 H Plt Count 199 Seg Neutrophils % 79.0 H Lymphocytes % 9.2 L Monocytes % 9.6 Eosinophils % 1.5 Basophils % 0.7 Absolute Neutrophils 7.6 Absolute Lymphocytes 0.9 Absolute Monocytes 0.9 Absolute Eosinophils 0.1 Absolute Basophils 0.1 Sodium 133.3 L Potassium 3.8 Chloride 94 L Carbon Dioxide 33 H Anion Gap 6 BUN 11 Creatinine 0.83 Est GFR ( Amer) > 60 Est GFR (Non-Af Amer) > 60 Glucose 120 H Calcium 7.6 L 01/01/19 01/01/19 01/02/19 09:51 09:51 06:24 Creatine Kinase 28 L Troponin I 0.014 NT-Pro-B Natriuret Pep 520 Impressions: Chest X-Ray 01/01/19 10:05 IMPRESSION: There may be a small left pleural effusion. No acute cardiopulmonary findings. Assessment and Plan - Diagnosis (1) Hyponatremia Is this a current diagnosis for this admission?: Yes Plan: Gradually improved. Up to 133.6 this morning. Likely secondary to alcohol abuse and poor oral intake. Continue banana bag today. Oral hydration is improving (2) Hypokalemia Is this a current diagnosis for this admission?: Yes Plan: Will replete with oral and IV potassium and monitor BMP (3) Hypomagnesemia Is this a current diagnosis for this admission?: Yes Plan: Resolved. Continue to monitor (4) Leukocytosis Qualifiers: Leukocytosis type: unspecified Qualified Code(s): D72.829 - Elevated white blood cell count, unspecified Is this a current diagnosis for this admission?: Yes Plan: No obvious signs of infection. Likely from mild dehydration. Improved with IV fluids. We will continue to monitor. (5) Anemia Qualifiers: Anemia type: unspecified type Qualified Code(s): D64.9 - Anemia, u nspecified Is this a current diagnosis for this admission?: Yes Plan: It is presently 11.7. He was 16 a year ago when he was here. (6) Alcoholism /alcohol abuse Is this a current diagnosis for this admission?: Yes Plan: We will place patient on [facility] protocol. Banana bag daily. (7) Coronary artery disease Qualifiers: Coronary Disease-Associated Artery/Lesion type: bypass graft [place] vs. transplanted heart: [place] heart Associated angina: without angina Qualified Code(s): I25.810 - Atherosclerosis of coronary artery bypass graft(s) without an justina pectoris Is this a current diagnosis for this admission?: Yes Plan: Reorder his metoprolol, atorvastatin and enteric-coated baby aspirin. (8) Has run out of medications Is this a current diagnosis for this admission?: Yes Plan: As above. He states he has no primary care provider. We have asked case management to assist him with this process post discharge so we do not run into the same problem down the road (9) History of bloody stools Is this a current diagnosis for this admission?: Yes Plan: Stool is brown and heme negative. Will start on oral protonix and monitor (10) Hypertension Qualifiers: Hypertension type: essential hypertension Qualified Code(s): I10 - Essential (primary) hypertension Is this a current diagnosis for this admission?: Yes Plan: We will resume metoprolol at 25 mg twice daily. Blood pressures 130s to 140s now systolically. (11) Tachycardia Is this a current diagnosis for this admission?: Yes Plan: Contrary to dehydration and lack of metoprolol - Time Time Spent with patient: 25-34 minutes Total Critical Time (Minutes): 30 Medications reviewed and adjusted accordingly: Yes Anticipated discharge: Home Within: within 24 hours - Inpatient Certification Based on my medical assessment, after consideration of the patient's comorbidities, presenting symptoms, or acuity I expect that the services needed warrant INPATIENT care.: Yes I certify that my determination is in accordance with my understanding of Medicare's requirements for reasonable and necessary INPATIENT services [42 CFR 412.3e].: Yes Medical Necessity: Need For IV Fluids
[2019-01-03] MEDS: ATORVASTATIN CALCIUM 40 MG TABLET PO SCH (21:58)
[2019-01-04] MEDS: LORAZEPAM 1 MG TABLET (TAPER DOSING) PO SCH ×4 (00:23→19:13)
[2019-01-04] MEDS: HEPARIN SOD (PORCINE) 5,000 UNIT/ML 1 ML VIAL SUBCUT SCH ×3 (06:09→21:55)
[2019-01-04] MEDS: PANTOPRAZOLE SODIUM 40 MG TABLET.DR PO SCH ×2 (06:09→19:12)
[2019-01-04] MEDS: ASPIRIN 81 MG TABLET, ENT COATED PO SCH (09:28)
[2019-01-04] MEDS: METOPROLOL TARTRATE 25 MG TABLET PO SCH (09:28)
[2019-01-04] MEDS: DOCUSATE SODIUM 100 MG CAPSULE PO SCH ×2 (09:33→19:12)
[2019-01-04] MEDS: NORMAL SALINE 1000 ML 1,000 ML with POTASSIUM CHLORIDE 20 MEQ, MAGNESIUM SULFATE 8 MEQ,... IV SCH ×5 (09:34)
--- NOTE | 2019-01-04 14:02 | PDOC PROGRESS REPORT ---
Subjective Progress Note for:: 01/04/19 Subjective:: Patient seen resting in bed. He is awake, alert, oriented x3. He denies any chest pain, shortness of breath or dyspnea. He denies any nausea, vomiting or abdominal pain. He denies any fevers or chills overnight. He has had no further melena. Denies any significant arthralgias or myalgias. He has required Ativan for his tremors. He states he is overall feeling better. He verbalizes no other complaints. Remaining review of systems are negative. Reason For Visit: HYPOKALEMIA,HYPONATREMIA,ETOH ABUSE Physical Exam Vital Signs: Temp Pulse Resp BP Pulse Ox 98.3 F 93 16 136/84 H 97 01/04/19 11:37 01/04/19 11:37 01/04/19 11:37 01/04/19 11:37 01/04/19 11:37 Intake & Output 01/03/19 01/04/19 01/05/19 06:59 06:59 06:59 Intake Total 2600 1473 Output Total 710 Balance 1890 1473 Weight 88.9 kg 88.9 kg General appearance: PRESENT: no acute distress, well-developed, well-nourished Head exam: PRESENT: atraumatic, normocephalic Eye exam: PRESENT: conjunctiva pale, PERRLA Ear exam: PRESENT: normal external ear exam Mouth exam: PRESENT: dry mucosa Neck exam: ABSENT: carotid bruit, JVD, lymphadenopathy, thyromegaly Respiratory exam: PRESENT: clear to auscultation kenny. ABSENT: rales, rhonchi, wheezes Cardiovascular exam: PRESENT: RRR. ABSENT: diastolic murmur, rubs, systolic murmur Pulses: PRESENT: normal dorsalis pedis pul Vascular exam: PRESENT: normal capillary refill GI/Abdominal exam: PRESENT: normal bowel sounds, soft. ABSENT: distended, guarding, mass, organolmegaly, rebound, tenderness Rectal exam: PRESENT: deferred Extremities exam: PRESENT: full ROM. ABSENT: calf tenderness, clubbing, pedal edema Musculoskeletal exam: PRESENT: full ROM, tenderness Neurological exam: PRESENT: alert, awake, oriented to person, oriented to place, oriented to time, oriented to situation, CN II-XII grossly intact. ABSENT: motor sensory deficit Psychiatric exam: PRESENT: appropriate affect, normal mood. ABSENT: homicidal ideation, suicidal ideation Skin exam: PRESENT: dry, intact, warm. ABSENT: cyanosis, rash Results Laboratory Results: 01/03/19 05:28 01/03/19 05:28 01/01/19 01/01/19 01/02/19 09:51 09:51 06:24 Creatine Kinase 28 L Troponin I 0.014 NT-Pro-B Natriuret Pep 520 Impressions: Chest X-Ray 01/01/19 10:05 IMPRESSION: There may be a small left pleural effusion. No acute cardiopulmon [place] findings. Assessment and Plan - Diagnosis (1) Hyponatremia Is this a current diagnosis for this admission?: Yes Plan: Gradually improved. 33 yesterday. We will continue banana bag today. Check chemistry in the a.m. Hopefully can discharge in the next 24-48 hours. Likely secondary to alcohol abuse and poor oral intake Oral hydration is improving (2) Hypokalemia Is this a current diagnosis for this admission?: Yes Plan: Will replete with oral and IV potassium and monitor BMP (3) Hypomagnesemia Is this a current diagnosis for this admission?: Yes Plan: Resolved. We will continue to monitor secondary to heavy alcohol intake likely (4) Leukocytosis Qualifiers: Leukocytosis type: unspecified Qualified Code(s): D72.829 - Elevated white blood cell count, unspecified Is this a current diagnosis for this admission?: Yes Plan: Resolved. Likely secondary to dehydration. (5) Anemia Qualifiers: Anemia type: unspecified type Qualified Code(s): D64.9 - Anemia, unspecified Is this a current diagnosis for this admission?: Yes Plan: Hemoglobin is presently 10. Stools guiac negative (6) Alcoholism /alcohol abuse Is this a current diagnosis for this admission?: Yes Plan: We will place patient on [facility] protocol. Banana bag daily. (7) Coronary artery disease Qualifiers: Coronary Disease-Associated Artery/Lesion type: bypass graft [place] vs. transplanted heart: [place] heart Associated angina: without angina Qualified Code(s): I25.810 - Atherosclerosis of coronary artery bypass graft(s) without angina pectoris Is this a current diagnosis for this admission?: Yes Plan: Reorder his metoprolol, atorvastatin and enteric-coated baby aspirin. (8) Has run out of medications Is this a current diagnosis for this admission?: Yes Plan: As above. He states he has no primary care provider. We have asked case management to assist him with this process post discharge so we do not run into the same problem down the road (9) History of bloody stools Is this a current diagnosis for this admission?: Yes Plan: Stool is brown and heme negative. Will start on oral protonix and monitor (10) Hypertension Qualifiers: Hypertension type: essential hypertension Qualified Code(s): I10 - Essential (primary) hypertension Is this a current diagnosis for this admission?: Yes Plan: We will resume metoprolol at 25 mg twice daily. Blood pressures 130s to 140s now systolically. (11) Tachycardia Is this a current diagnosis for this admission?: Yes Plan: Contrary to dehydration and lack of metoprolol - Time Time Spent with patient: 25-34 minutes Total Critical Time (Minutes): 20 Medications reviewed and adjusted accordingly: Yes Anticipated discharge: Home Within: within 48 hours - Inpatient Certification Based on my medical assessment, after consideration of the patient's comorbidities, presenting symptoms, or acuity I expect that the services needed warrant INPATIENT care.: Yes I certify that my determination is in accordance with my understanding of Medicare's requirements for reasonable and necessary INPATIENT services [42 CFR 412.3e].: Yes Medical Necessity: Significant Comorbidiites Make Outpatient Treatment Too Risky, Need For IV Fluids, Need For Continuous Telemetry Monitoring
[2019-01-04] MEDS ORDERED: ONDANSETRON HCL INJ/PF 4 MG/2 ML SDV IV PRN (15:30)
[2019-01-04] MEDS: METOPROLOL TARTRATE 50 MG TABLET PO SCH (21:55)
[2019-01-04] MEDS: ATORVASTATIN CALCIUM 40 MG TABLET PO SCH (21:55)
[2019-01-05] MEDS: LORAZEPAM 1 MG TABLET (TAPER DOSING) PO SCH ×3 (04:14→23:12)
[2019-01-05] MEDS: HEPARIN SOD (PORCINE) 5,000 UNIT/ML 1 ML VIAL SUBCUT SCH ×3 (05:35→22:41)
[2019-01-05] MEDS: PANTOPRAZOLE SODIUM 40 MG TABLET.DR PO SCH ×2 (05:35→17:23)
[2019-01-05 05:51] LABS: ABSOLUTE BASOPHILS # (AUTO) 0.2 10^3/uL (0.0-0.2); ABSOLUTE EOSINOPHILS # (AUTO) 0.2 10^3/uL (0.0-0.6); ABSOLUTE LYMPHOCYTES (AUTO) 1.1 10^3/uL (0.5-4.7); ABSOLUTE MONOCYTES (AUTO) 0.9 10^3/uL (0.1-1.4); ABSOLUTE RETICS # 0.107 10^6/uL (0.028-0.122); BASOPHILS % (AUTO) 1.4 % (0-2); EOSINOPHILS % (AUTO) 2.2 % (0-6); HEMATOCRIT 33.4 % (37.9-51.0); HEMOGLOBIN 11.1 g/dL (13.5-17.0); LYMPHOCYTES % (AUTO) 9.6 % (13-45); MEAN CORPUSCULAR HEMOGLOBIN 32.3 pg (27.0-33.4); MEAN CORPUSCULAR HGB CONC 33.3 g/dL (32.0-36.0); MEAN CORPUSCULAR VOLUME 97 fl (80-97); MONOCYTES % (AUTO) 7.9 % (3-13); PLATELET COUNT 265 10^3/uL (150-450); RED BLOOD COUNT 3.43 10^6/uL (4.35-5.55); RED CELL DISTRIBUTION WIDTH 15.5 % (11.5-14.0); RETICULOCYTE COUNT (AUTO) 3.12 % (0.66-2.85); SEGMENTED NEUTROPHILS % (AUTO) 78.9 % (42-78); TOTAL CELLS COUNTED % (AUTO) 100 %; WHITE BLOOD COUNT 11.4 10^3/uL (4.0-10.5)
[2019-01-05 06:03] LABS: ALBUMIN 2.7 g/dL (3.5-5.0); ALKALINE PHOSPHATASE 160 U/L (38-126); ANION GAP 9 (5-19); ASPARTATE AMINO TRANSFERASE 81 U/L (17-59); BILIRUBIN,DIRECT 0.7 mg/dL (0.0-0.4); BILIRUBIN,TOTAL 0.9 mg/dL (0.2-1.3); BLOOD UREA NITROGEN 12 mg/dL (7-20); CALCIUM 8.3 mg/dL (8.4-10.2); CARBON DIOXIDE 29 mmol/L (22-30); CHLORIDE 95 mmol/L (98-107); GLUCOSE 120 mg/dL (75-110); IRON(TIBC) 63.7 ug/dL (49-181); POTASSIUM 4.6 mmol/L (3.6-5.0); TOTAL PROTEIN 6.6 g/dL (6.3-8.2)
[2019-01-05 07:09] LABS: FOLATE 4.73 ng/mL (>2.76)
[2019-01-05] MEDS: DOCUSATE SODIUM 100 MG CAPSULE PO SCH ×2 (09:39→17:23)
[2019-01-05] MEDS: ASPIRIN 81 MG TABLET, ENT COATED PO SCH (09:39)
[2019-01-05] MEDS: METOPROLOL TARTRATE 50 MG TABLET PO SCH ×2 (09:39→22:41)
--- NOTE | 2019-01-05 10:47 | PDOC PROGRESS REPORT ---
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 He underwent work-up in the ER emergency room which found him to have significant electrolyte derangement. His stool was guaiac negative for heme. He was found to be tachycardic on his arrival. Upon further investigation, as he has not had his metoprolol in over 3 months time. There is no signs of anemia or infection. He does admit to regular frequent alcohol use. His last drink was this morning he had 1 ounce of vodka. His thought processes are quite disjointed. He denies any nausea, vomiting or diarrhea. He presently denies any abdominal pain when I asked him. He has a friend at the bedside. He has been referred to the hospitalist service for admission for electrolyte derangement. He was found to have a sodium of 127. Potassium was 2.8 and magnesium was 1.0. 01/05/[id number]-tlzu-old male with multiple medical problems including coronary artery disease, essential hypertension, alcohol abuse status post CABG in July 2018 admitted for left sided abdominal discomfort and dark tarry colored stools. Found to have electrolyte abnormalities in the emergency room. Patient is receiving banana bag and potassium magnesium supplementations. Latest serum p otassium is 4.6 sodium is 132.6. Comfortable in the bed communicating well. Reason For Visit: HYPOKALEMIA,HYPONATREMIA,ETOH ABUSE Physical Exam Vital Signs: Temp Pulse Resp BP Pulse Ox 97.3 F 86 16 139/81 H 96 01/05/19 07:32 01/05/19 07:32 01/05/19 07:32 01/05/19 07:32 01/05/19 07:32 Intake & Output 01/04/19 01/05/19 01/06/19 06:59 06:59 06:59 Intake Total 1473 2159 Balance 1473 2159 Weight 88.9 kg 86.4 kg General appearance: PRESENT: no acute distress Head exam: PRESENT: atraumatic Eye exam: PRESENT: PERRLA Mouth exam: PRESENT: moist, tongue midline Teeth exam: PRESENT: poor dentation Neck exam: ABSENT: carotid bruit, JVD, lymphadenopathy, thyromegaly Respiratory exam: PRESENT: decreased breath sounds Cardiovascular exam: PRESENT: RRR. ABSENT: diastolic murmur, rubs, systolic murmur GI/Abdominal exam: PRESENT: normal bowel sounds, soft. ABSENT: distended, guarding, mass, organolmegaly, rebound, tenderness Rectal exam: PRESENT: deferred Extremities exam: PRESENT: full ROM. ABSENT: calf tenderness, clubbing, pedal edema Neurological exam: PRESENT: alert, awake, oriented to person, oriented to place, oriented to time, oriented to situation, CN II-XII grossly intact. ABSENT: motor sensory deficit Psychiatric exam: PRESENT: appropriate affect, normal mood. ABSENT: homicidal ideation, suicidal ideation Results Laboratory Results: 01/05/19 04:23 01/05/19 04:23 01/05/19 01/05/19 04:23 04:23 WBC 11.4 H RBC 3.43 L Hgb 11.1 L Hct 33.4 L MCV 97 MCH 32.3 MCHC 33.3 RDW 15.5 H Plt Count 265 Seg Neutrophils % 78.9 H Lymphocytes % 9.6 L Monocytes % 7.9 Eosinophils % 2.2 Basophils % 1.4 Absolute Neutrophils 9.0 H Absolute Lymphocytes 1.1 Absolute Monocytes 0.9 Absolute Eosinophils 0.2 Absolute Basophils 0.2 Retic Count (auto) 3.12 H Absolute Retic 0.107 Sodium 132.6 L Potassium 4.6 Chloride 95 L Carbon Dioxide 29 Anion Gap 9 BUN 12 Creatinine 0.92 Est GFR ( Amer) > 60 Est GFR (Non-Af Amer) > 60 Glucose 120 H Calcium 8.3 L Magnesium 1.6 Iron 63.7 TIBC 198 L % Saturation 32 Ferritin 618.00 H Total Bilirubin 0.9 AST 81 H Alkaline Phosphatase 160 H Total Protein 6.6 Albumin 2.7 L Vitamin B12 > 1000.0 H Folate 4.73 01/01/19 01/01/19 01/02/19 09:51 09:51 06:24 Creatine Kinase 28 L Troponin I 0.014 NT-Pro-B Natriuret Pep 520 Impressions: Chest X-Ray 01/01/19 10:05 IMPRESSION: There may be a small left pleural effusion. No acute cardiopulmonary findings. Assessment and Plan - Diagnosis (1) Alcoholism /alcohol abuse Is this a current diagnosis for this admission?: Yes Plan: We will place patient on CIWA protocol. Banana bag daily. 01/05/2019-patient is a chronic alcohol user he is receiving IV banana bag daily and we are going to watching the DTs. He is on CIWA protocol. (2) Hypomagnesemia Is this a current diagnosis for this admission?: Yes Plan: Resolved. We will continue to monitor secondary to heavy alcohol intake likely 01/05/2019-patient serum magnesium today is 1.6 to start him on p.o. magnesium from today. To check the labs tomorrow. (3) Hypokalemia Is this a current diagnosis for this admission?: Yes Plan: Will replete with oral and IV potassium and monitor BMP 01/05/2019-serum potassium is 4.6 patient is receiving daily potassium supplementations. (4) Hypertension Qualifiers: Hypertension type: essential hypertension Qualified Code(s): I10 - Essential (primary) hypertension Is this a current diagnosis for this admission?: Yes Plan: We will resume metoprolol at 25 mg twice daily. Blood pressures 130s to 140s now systolically. 01/05/2019-patient has history of essential hypertension blood pressure today is 132/85. Stable. Plan is to continue metoprolol 25 mg p.o. twice a day. (5) History of bloody stools Is this a current diagnosis for this admission?: Yes Plan: Stool is brown and heme negative. Will start on oral protonix and monitor 01/05/2019-patient complaining of bloody stools hemoglobin is stable at 11.1. Patient is on Protonix. (6) Coronary artery disease Qualifiers: Coronary Disease-Associated Artery/Lesion type: bypass graft [place] vs. transplanted heart: [place] heart Associated angina: without angina Qualified Code(s): I25.810 - Atherosclerosis of coronary artery bypass graft(s) without angina pectoris Is this a current diagnosis for this admission?: Yes Plan: Reorder his metoprolol, atorvastatin and enteric-coated baby aspirin. 01/05/2019-patient has history of coronary artery disease no complaints of chest pain he is on aspirin, metoprolol and cholesterol medications. - Time Time Spent with patient: 15-24 minutes Medications reviewed and adjusted accordingly: Yes Anticipated discharge: Home
[2019-01-05] MEDS: MAGNESIUM OXIDE 400 MG TABLET PO SCH (17:22)
[2019-01-05] MEDS: ATORVASTATIN CALCIUM 40 MG TABLET PO SCH (22:41)
[2019-01-06] MEDS: HEPARIN SOD (PORCINE) 5,000 UNIT/ML 1 ML VIAL SUBCUT SCH ×3 (05:17→21:14)
[2019-01-06] MEDS: PANTOPRAZOLE SODIUM 40 MG TABLET.DR PO SCH ×2 (05:17→17:48)
[2019-01-06 06:00] LABS: ABSOLUTE BASOPHILS # (AUTO) 0.2 10^3/uL (0.0-0.2); ABSOLUTE EOSINOPHILS # (AUTO) 0.2 10^3/uL (0.0-0.6); ABSOLUTE LYMPHOCYTES (AUTO) 1.1 10^3/uL (0.5-4.7); ABSOLUTE MONOCYTES (AUTO) 0.9 10^3/uL (0.1-1.4); ABSOLUTE NEUT (AUTO) 11.8 10^3/uL (1.7-8.2); BASOPHILS % (AUTO) 1.1 % (0-2); EOSINOPHILS % (AUTO) 1.3 % (0-6); HEMOGLOBIN 11.3 g/dL (13.5-17.0); MEAN CORPUSCULAR HEMOGLOBIN 32.4 pg (27.0-33.4); MEAN CORPUSCULAR HGB CONC 33.3 g/dL (32.0-36.0); MEAN CORPUSCULAR VOLUME 97 fl (80-97); MONOCYTES % (AUTO) 6.3 % (3-13); PLATELET COUNT 310 10^3/uL (150-450); RED BLOOD COUNT 3.49 10^6/uL (4.35-5.55); RED CELL DISTRIBUTION WIDTH 15.7 % (11.5-14.0); SEGMENTED NEUTROPHILS % (AUTO) 83.3 % (42-78); TOTAL CELLS COUNTED % (AUTO) 100 %; WHITE BLOOD COUNT 14.2 10^3/uL (4.0-10.5)
[2019-01-06 06:22] LABS: ALBUMIN 2.8 g/dL (3.5-5.0); ALKALINE PHOSPHATASE 161 U/L (38-126); ANION GAP 7 (5-19); ASPARTATE AMINO TRANSFERASE 73 U/L (17-59); BILIRUBIN,DIRECT 0.5 mg/dL (0.0-0.4); BILIRUBIN,TOTAL 0.8 mg/dL (0.2-1.3); BLOOD UREA NITROGEN 15 mg/dL (7-20); CALCIUM 8.6 mg/dL (8.4-10.2); CARBON DIOXIDE 30 mmol/L (22-30); CHLORIDE 94 mmol/L (98-107); GLUCOSE 144 mg/dL (75-110); POTASSIUM 4.7 mmol/L (3.6-5.0); TOTAL PROTEIN 6.8 g/dL (6.3-8.2)
[2019-01-06] MEDS: METOPROLOL TARTRATE 50 MG TABLET PO SCH ×2 (09:06→21:14)
[2019-01-06] MEDS: MAGNESIUM OXIDE 400 MG TABLET PO SCH ×2 (09:06→17:48)
[2019-01-06] MEDS: ASPIRIN 81 MG TABLET, ENT COATED PO SCH (09:06)
[2019-01-06] MEDS: MAGNESIUM SULFATE/D5W 1 GM/100 ML RTUPB IV SCH ×2 (09:06→10:50)
[2019-01-06] MEDS: DOCUSATE SODIUM 100 MG CAPSULE PO SCH ×2 (09:06→17:48)
--- NOTE | 2019-01-06 10:34 | PDOC PROGRESS REPORT ---
Subjective Progress Note for:: 01/06/19 Subjective:: 63 year old male with past medical history of coronary artery disease, essential hypertension, alcohol abuse and status post CABG in July/2018, who presents to [facility]'s emergency room this morning with complaints of left- sided abdominal discomfort and dark tarry stools. He underwent work-up in the ER emergency room which found him to have significant electrolyte derangement. His stool was guaiac negative for heme. He was found to be tachycardic on his arrival. Upon further investigation, as he has not had his metoprolol in over 3 months time. There is no signs of anemia or infection. He does admit to regular frequent alcohol use. His last drink was this morning he had 1 ounce of vodka. His thought processes are quite disjointed. He denies any nausea, vomiting or diarrhea. He presently denies any abdominal pain when I asked him. He has a friend at the bedside. He has been referred to the hospitalist service for admission for electrolyte derangement. He was found to have a sodium of 127. Potassium was 2.8 and magnesium was 1.0. 01/05/[id number]-wufa-old male with multiple medical problems including coronary artery disease, essential hypertension, alcohol abuse status post CABG in July 2018 admitted for left sided abdominal discomfort and dark tarry colored stools. Found to have electrolyte abnormalities in the emergency room. Patient is receiving banana bag and potassium magnesium supplementations. Latest serum potassium is 4.6 sodium is 132.6. Comfortable in the bed communicating well. 01/06/[id number]-jjky-old male admitted with left-sided abdominal discomfort and dark-colored stools. In the emergency room work-up found to have significant electrolyte abnormalities. Stool guaiac was came back negative. No signs of anemia or infection at the time of admission. His sodium is 131.4 today potassium is three 4.7 magnesium is 1.4 to give 2 g of IV magnesium today. Creatinine is 1.13. Comfortably in the bed communicating well. Patient has history of alcohol abuse. Reason For Visit: HYPOKALEMIA,HYPONATREMIA,ETOH ABUSE Physical Exam Vital Signs: Temp Pulse Resp BP Pulse Ox 98.5 F 80 12 147/89 H 97 01/06/19 07:41 01/06/19 07:41 01/06/19 07:41 01/06/19 07:41 01/06/19 07:41 Intake & Output 01/05/19 01/06/19 01/07/19 06:59 06:59 06:59 Intake Total 2159 608 Balance 2159 608 Weight 86.4 kg 91.1 kg General appearance: PRESENT: no acute distress, cooperative Head exam: PRESENT: atraumatic Eye exam: PRESENT: PERRLA Mouth exam: PRESENT: moist, tongue midline Teeth exam: PRESENT: poor dentation Neck exam: ABSENT: carotid bruit, JVD, lymphadenopathy, thyromegaly Respiratory exam: PRESENT: clear to auscultation kenny. ABSENT: rales, rhonchi, wheezes Cardiovascular exam: PRESENT: RRR. ABSENT: diastolic murmur, rubs, systolic murmur Rectal exam: PRESENT: deferred Extremities exam: PRESENT: full ROM. ABSENT: calf tenderness, clubbing, pedal edema Neurological exam: PRESENT: alert, awake, oriented to person, oriented to place, oriented to time, oriented to situation, CN II-XII grossly intact. ABSENT: motor sensory deficit Psychiatric exam: PRESENT: appropriate affect, normal mood. ABSENT: homicidal ideation, suicidal ideation Results Laboratory Results: 01/06/19 05:41 01/06/19 05:41 01/06/19 01/06/19 05:41 05:41 WBC 14.2 H RBC 3.49 L Hgb 11.3 L Hct 34.0 L MCV 97 MCH 32.4 MCHC 33.3 RDW 15.7 H Plt Count 310 Seg Neutrophils % 83.3 H Lymphocytes % 8.0 L Monocytes % 6.3 Eosinophils % 1.3 Basophils % 1.1 Absolute Neutrophils 11.8 H Absolute Lymphocytes 1.1 Absolute Monocytes 0.9 Absolute Eosinophils 0.2 Absolute Basophils 0.2 Sodium 131.3 L Potassium 4.7 Chloride 94 L Carbon Dioxide 30 Anion Gap 7 BUN 15 Creatinine 1.13 Est GFR ( Amer) > 60 Est GFR (Non-Af Amer) > 60 Glucose 144 H Calcium 8.6 Magnesium 1.4 L Total Bilirubin 0.8 AST 73 H Alkaline Phosphatase 161 H Total Protein 6.8 Albumin 2.8 L 01/01/19 01/01/19 01/02/19 09:51 09:51 06:24 Creatine Kinase 28 L Troponin I 0.014 NT-Pro-B Natriuret Pep 520 Impressions: Chest X-Ray 01/01/19 10:05 IMPRESSION: There may be a small left pleural effusion. No acute cardiopulmonary findings. Assessment and Plan - Diagnosis (1) Alcoholism /alcohol abuse Is this a current diagnosis for this admission?: Yes Plan: We will place patient on CIWA protocol. Banana bag daily. 01/05/2019-patient is a chronic alcohol user he is receiving IV banana bag daily and we are going to watching the DTs. He is on CIWA protocol. 01/06/2019-patient has a history of chronic alcohol abuse (2) Hypomagnesemia Is this a current diagnosis for this admission?: Yes Plan: Resolved. We will continue to monitor secondary to heavy alcohol intake likely 01/05/2019-patient serum magnesium today is 1.6 to start him on p.o. magnesium from today. To check the labs tomorrow. 01/06/2019- mag is 1.4 today to give 2 grams of iv mag and to recheck labs am (3) Hypokalemia Is this a current diagnosis for this admission?: Yes Plan: Will replete with oral and IV potassium and monitor BMP 01/05/2019-serum potassium is 4.6 patient is receiving daily potassium supplementations. 01/06/2019- serum potassium is 4.7 and hypokalemia is resolved (4) Hypertension Qualifiers: Hypertension type: essential hypertension Qualified Code(s): I10 - Es sential (primary) hypertension Is this a current diagnosis for this admission?: Yes Plan: We will resume metoprolol at 25 mg twice daily. Blood pressures 130s to 140s now systolically. 01/05/2019-patient has history of essential hypertension blood pressure today is 132/85. Stable. Plan is to continue metoprolol 25 mg p.o. twice a day. 01/06/2019- bp today is 150/80 stable. plan is to continue same tretment. (5) History of bloody stools Is this a current diagnosis for this admission?: Yes (6) Coronary artery disease Qualifiers: Coronary Disease-Associated Artery/Lesion type: bypass graft [place] vs. transplanted heart: [place] heart Associated angina: without angina Qualified Code(s): I25.810 - Atherosclerosis of coronary artery bypass graft(s) without angina pectoris Is this a current diagnosis for this admission?: Yes - Time Time Spent with patient: 15-24 minutes Smoking Cessation Education: over 10 minutes Medications reviewed and adjusted accordingly: Yes Anticipated discharge: Home
[2019-01-06] MEDS: LORAZEPAM 1 MG TABLET (TAPER DOSING) PO SCH (13:36)
[2019-01-06] MEDS: ATORVASTATIN CALCIUM 40 MG TABLET PO SCH (21:14)
[2019-01-07] MEDS: PANTOPRAZOLE SODIUM 40 MG TABLET.DR PO SCH (06:17)
[2019-01-07] MEDS: HEPARIN SOD (PORCINE) 5,000 UNIT/ML 1 ML VIAL SUBCUT SCH (06:17)
[2019-01-07] MEDS: MAGNESIUM OXIDE 400 MG TABLET PO SCH (09:55)
[2019-01-07] MEDS: DOCUSATE SODIUM 100 MG CAPSULE PO SCH (09:56)
[2019-01-07] MEDS: ASPIRIN 81 MG TABLET, ENT COATED PO SCH (09:56)
[2019-01-07] MEDS: METOPROLOL TARTRATE 50 MG TABLET PO SCH (09:56)
[2019-01-07 09:59] LABS: ALBUMIN 2.9 g/dL (3.5-5.0); ALKALINE PHOSPHATASE 162 U/L (38-126); ANION GAP 8 (5-19); ASPARTATE AMINO TRANSFERASE 80 U/L (17-59); BILIRUBIN,DIRECT 0.5 mg/dL (0.0-0.4); BILIRUBIN,TOTAL 0.8 mg/dL (0.2-1.3); BLOOD UREA NITROGEN 17 mg/dL (7-20); CALCIUM 8.6 mg/dL (8.4-10.2); CARBON DIOXIDE 30 mmol/L (22-30); CHLORIDE 92 mmol/L (98-107); GLUCOSE 173 mg/dL (75-110); POTASSIUM 4.6 mmol/L (3.6-5.0); TOTAL PROTEIN 6.8 g/dL (6.3-8.2)
[2019-01-07 10:09] LABS: ABSOLUTE BASOPHILS # (AUTO) 0.1 10^3/uL (0.0-0.2); ABSOLUTE EOSINOPHILS # (AUTO) 0.2 10^3/uL (0.0-0.6); ABSOLUTE MONOCYTES (AUTO) 0.7 10^3/uL (0.1-1.4); ABSOLUTE NEUT (AUTO) 10.5 10^3/uL (1.7-8.2); BASOPHILS % (AUTO) 1.1 % (0-2); EOSINOPHILS % (AUTO) 1.4 % (0-6); HEMOGLOBIN 10.9 g/dL (13.5-17.0); MEAN CORPUSCULAR HEMOGLOBIN 32.4 pg (27.0-33.4); MEAN CORPUSCULAR HGB CONC 33.1 g/dL (32.0-36.0); MEAN CORPUSCULAR VOLUME 98 fl (80-97); MONOCYTES % (AUTO) 5.9 % (3-13); PLATELET COUNT 281 10^3/uL (150-450); RED BLOOD COUNT 3.37 10^6/uL (4.35-5.55); SEGMENTED NEUTROPHILS % (AUTO) 83.6 % (42-78); TOTAL CELLS COUNTED % (AUTO) 100 %; WHITE BLOOD COUNT 12.6 10^3/uL (4.0-10.5)
--- NOTE | 2019-01-07 11:19 | PDOC DISCHARGE SUMMARY ---
General - Admit/Disc Date/PCP Admission Date/Primary Care Provider: 01/01/19 13:16 Discharge Date: 01/07/19 - Discharge Diagnosis (1) Alcoholism /alcohol abuse Is this a current diagnosis for this admission?: Yes Summary: We will place patient on CIWA protocol. Banana bag daily. 01/05/2019-patient is a chronic alcohol user he is receiving IV banana bag daily and we are going to watching the DTs. He is on CIWA protocol. 01/06/2019-patient has a history of chronic alcohol abuse 01/07/2019-patient has history of chronic alcohol abuse no acute events during the hospital stay. No signs of DTs in the hospital stay. Patient is going home today counseling was provided about cutdown of alcohol intake. (2) Hypomagnesemia Is this a current diagnosis for this admission?: Yes Summary: Resolved. We will continue to monitor secondary to heavy alcohol intake likely 01/05/2019-patient serum magnesium today is 1.6 to start him on p.o. magnesium from today. To check the labs tomorrow. 01/06/2019- mag is 1.4 today to give 2 grams of iv mag and to recheck labs am 01/07/2019-serum magnesium is 1.7 today. Patient was given a prescription for magnesium 400 mg p.o. twice daily for 1 month. Patient was strongly advised to follow-up with primary care physician in 1 week time. (3) Hypokalemia Is this a current diagnosis for this admission?: Yes Summary: Will replete with oral and IV potassium and monitor BMP 01/05/2019-serum potassium is 4.6 patient is receiving daily potassium supplementations. 01/06/2019- serum potassium is 4.7 and hypokalemia is resolved 01/07/2019-serum potassium level today is 4.2 hyperkalemia is resolved. (4) Hypertension Is this a current diagnosis for this admission?: Yes Summary: We will resume metoprolol at 25 mg twice daily. Blood pressures 130s to 140s now systolically. 01/05/2019-patient has history of essential hypertension blood pressure today is 132/85. Stable. Plan is to continue metoprolol 25 mg p.o. twice a day. 01/06/2019- bp today is 150/80 stable. plan is to continue same tretment. 01/07/2019-patient blood pressure today is 134/70 stable. (5) History of bloody stools Is this a current diagnosis for this admission?: Yes (6) Coronary artery disease Is this a current diagnosis for this admission?: Yes - Additional Information Resuscitation Status: Full Code Discharge Diet: Cardiac Discharge Activity: Activity As Tolerated Prescriptions: Aspirin [Ecotrin 81 mg EC Tablet] 81 mg PO DAILY #30 tabec Atorvastatin Calcium [Lipitor 40 mg Tablet] 40 mg PO QHS #30 tablet Magnesium Oxide [Mag-Ox 400 mg Tablet] 800 mg PO BID #60 tablet Metoprolol Tartrate [Lopressor 50 mg Tablet] 50 mg PO Q12 #60 tablet Home Medications: Metoprolol Tartrate [Lopressor 50 mg Tablet] 50 mg PO Q12 01/01/19 Aspirin [Ecotrin 81 mg EC Tablet] 81 mg PO DAILY #30 tabec 01/07/19 Atorvastatin Calcium [Lipitor 40 mg Tablet] 40 mg PO QHS #30 tablet 01/07/19 Magnesium Oxide [Mag-Ox 400 mg Tablet] 800 mg PO BID #60 tablet 01/07/19 Metoprolol Tartrate [Lopressor 50 mg Tablet] 50 mg PO Q12 #60 tablet 01/07/19 History of Present Illness History of Present Illness: MAULIK HEBERT is a 63 year old male Hospital Course Hospital Course: 63 year old male with past medical history of coronary artery disease, essential hypertension, alcohol abuse and status post CABG in July/2018, who presents to [facility] emergency room this morning with complaints of left- sided abdominal discomfort and dark tarry stools. He underwent work-up in the ER emergency room which found him to have significant electrolyte derangement. His stool was guaiac negative for heme. He was found to be tachycardic on his arrival. Upon further investigation, as he has not had his metoprolol in over 3 months time. There is no signs of anemia or infection. He does admit to regular frequent alcohol use. His last drink was this morning he had 1 ounce of vodka. His thought processes are quite disjointed. He denies any nausea, vomiting or diarrhea. He presently denies any abdominal pain when I asked him. He has a friend at the bedside. He has been referred to the hospitalist service for admission for electrolyte derangement. He was found to have a sodium of 127. Potassium was 2.8 and magnesium was 1.0. 01/05/[id number]-wofz-old male with multiple medical problems including coronary artery disease, essential hypertension, alcohol abuse status post CABG in July 2018 admitted for left sided abdominal discomfort and dark tarry colored stools. Found to have electrolyte abnormalities in the emergency room. Patient is receiving banana bag and potassium magnesium supplementations. Latest serum potassium is 4.6 sodium is 132.6. Comfortable in the bed communicating well. 01/06/[id number]-aekt-old male admitted with left-sided abdominal discomfort and dark-colored stools. In the emergency room work-up found to have significant electrolyte abnormalities. Stool guaiac was came back negative. No signs of anemia or infection at the time of admission. His sodium is 131.4 today potassium is three 4.7 magnesium is 1.4 to give 2 g of IV magnesium today. Creatinine is 1.13. Comfortably in the bed communicating well. Patient has history of alcohol abuse. 2019-patient is comfortably in the bed communicating well patient's brother is at bedside patient is demanding to go home today. No acute events in the last 24 hours. Physical Exam Vital Signs: Temp Pulse Resp BP Pulse Ox 98.4 F 80 16 143/88 H 99 01/07/19 08:00 01/07/19 08:00 01/07/19 08:00 01/07/19 08:00 01/07/19 08:00 Intake & Output 01/06/19 01/07/19 01/08/19 06:59 06:59 06:59 Intake Total 608 1860 Balance 608 1860 Weight 91.1 kg 86.2 kg General appearance: PRESENT: no acute distress, cooperative Head exam: PRESENT: atraumatic Eye exam: PRESENT: PERRLA Mouth exam: PRESENT: moist, tongue midline Neck exam: ABSENT: carotid bruit, JVD, lymphadenopathy, thyromegaly Respiratory exam: PRESENT: clear to auscultation kenny. ABSENT: rales, rhonchi, wheezes Cardiovascular exam: PRESENT: RRR. ABSENT: diastolic murmur, rubs, systolic murmur GI/Abdominal exam: PRESENT: normal bowel sounds, soft. ABSENT: distended, guarding, mass, organolmegaly, rebound, tenderness Rectal exam: PRESENT: deferred Extremities exam: PRESENT: full ROM. ABSENT: calf tenderness, clubbing, pedal edema Neurological exam: PRESENT: alert, awake, oriented to person, oriented to place, oriented to time, oriented to situation, CN II-XII grossly intact. ABSENT: motor sensory deficit Psychiatric exam: PRESENT: appropriate affect, normal mood. ABSENT: homicidal ideation, suicidal ideation Results Laboratory Results: 01/07/19 09:10 01/07/19 09:10 01/07/19 01/07/19 09:10 09:10 WBC 12.6 H RBC 3.37 L Hgb 10.9 L Hct 33.0 L MCV 98 H MCH 32.4 MCHC 33.1 RDW 16.0 H Plt Count 281 Seg Neutrophils % 83.6 H Lymphocytes % 8.0 L Monocytes % 5.9 Eosinophils % 1.4 Basophils % 1.1 Absolute Neutrophils 10.5 H Absolute Lymphocytes 1.0 Absolute Monocytes 0.7 Absolute Eosinophils 0.2 Absolute Basophils 0.1 Sodium 130.4 L Potassium 4.6 Chloride 92 L Carbon Dioxide 30 Anion Gap 8 BUN 17 Creatinine 1.19 Est GFR ( Amer) > 60 Est GFR (Non-Af Amer) > 60 Glucose 173 H Calcium 8.6 Magnesium 1.7 Total Bilirubin 0.8 AST 80 H Alkaline Phosphatase 162 H Total Protein 6.8 Albumin 2.9 L 01/01/19 01/01/19 01/02/19 09:51 09:51 06:24 Creatine Kinase 28 L Troponin I 0.014 NT-Pro-B Natriuret Pep 520 Impressions: Chest X-Ray 01/01/19 10:05 IMPRESSION: There may be a small left pleural effusion. No acute cardiopulmonary findings. Qualifiers - * PATIENT BEING DISCHARGED WITH ANY OF THE FOLLOWING DIAGNOSIS: No Acute Heart Failure - Is this a Heart Failure Patient?: No Plan Time Spent: Greater than 30 Minutes
[2019-01-07 13:32] VITALS: BP 135/78
== END 2019-01-07 13:45 | disposition home or self-care (01) | DRG 641 ==
LOC: ER 09:40 → EH 13:16 → 5 15:13
PROVIDERS: ADMIT Internal Medicine; ATTEND Internal Medicine
PROC: HZ2ZZZZ Detoxification Services for Substance Abuse Treatment (ICD-10-PCS; principal; 2019-01-01)
DX: E87.1 Hypo-osmolality and hyponatremia (principal); E87.6 Hypokalemia; E83.42 Hypomagnesemia; I25.10 Atherosclerotic heart disease of native coronary artery without angina pectoris; D72.829 Elevated white blood cell count, unspecified; D64.9 Anemia, unspecified; I10 Essential (primary) hypertension; F10.10 Alcohol abuse, uncomplicated; R00.0 Tachycardia, unspecified; Z95.1 Presence of aortocoronary bypass graft; T44.7X6A Underdosing of beta-adrenoreceptor antagonists, initial encounter; Z88.6 Allergy status to analgesic agent
CPT/HCPCS: 36415; 71045; 80048; 80053; 80061; 81001; 82140; 82533; 82550; 82607; 82728; 82746; 83540; 83550; 83605; 83690; 83735; 83880; 84443; 84484; 85025; 85045; 85610; 86850; 86900; 86901; 93005; 93010; 96365; 96366; 96375; 99291; J1644; J2060; J2405; J3411; J3475; J3480; J3490; J7030

== ENCOUNTER 2019-12-01 16:49 | Emergency (ER) | payer SELFPAY ==
--- NOTE | 2019-12-01 17:20 | ER Document Report ---
ED General - General Chief Complaint: Altered Mental Status Stated Complaint: POSSIBLE SEPSIS Mode of Arrival: Medic Information source: Patient Notes: Patient is a 64-year-old male presenting to the emergency department via EMS chief complaint of possible altered mental status. EMS was called by a neighbor secondary to the patient acting unusual. At time of presentation patient is alert and oriented x3 answers questions appropriately follows requests appropriately does have a odd affect and does tend to get lost in his own words but demonstrates no acute strokelike symptoms. Patient complains of throat pain secondary to being intubated for his heart catheterization but otherwise states he has no real complaints. TRAVEL OUTSIDE OF THE [place] IN LAST 30 DAYS: No - HPI Onset: Just prior to arrival Onset/Duration: Intermittent Quality of pain: No pain Severity: None Pain Level: Denies Associated symptoms: Sore throat Exacerbated by: Denies Relieved by: Denies Similar symptoms previously: No Recently seen / treated by doctor: No - Related Data Allergies/Adverse Reactions: aspirin Allergy (Verified 10/21/17 04:35) NSAIDS (Non-Steroidal Anti-Inflamma Allergy (Verified 10/21/17 04:35) Past Medical History - General Information source: Patient - Social History Smoking Status: Never Smoker Chew tobacco use (# tins/day): No Frequency of alcohol use: Heavy Drug Abuse: None Lives with: Alone Family History: CAD, Hypertension Patient has suicidal ideation: No Patient has homicidal ideation: No - Past Medical History Cardiac Medical History: Reports: Hx Coronary Artery Disease, Hx Heart Attack, Hx Hypertension Renal/ Medical History: Denies: Hx Peritoneal Dialysis Malignancy Medical History: Reports Hx Bone Cancer Past Surgical History: Reports: Hx Cardiac Surgery - CABG Review of Systems - Review of Systems Notes: REVIEW OF SYSTEMS: CONSTITUTIONAL : Denies fever, chills, or sweats. Denies recent illness. EENT: Denies eye, ear, or mouth pain or symptoms. Denies nasal or sinus congestion. CARDIOVASCULAR: Denies chest pain. RESPIRATORY: Denies cough, cold, or chest congestion. Denies shortness of breath, difficulty breathing, or wheezing. GASTROINTESTINAL: Denies abdominal pain. Denies nausea, vomiting, or diarrhea. Denies constipation. GENITOURINARY: Denies difficulty urinating, painful urination, burning, frequency, or blood in urine. MUSCULOSKELETAL: Denies neck or back pain or joint pain or swelling. SKIN: Denies rash or skin lesions. HEMATOLOGIC : Denies easy bruising or bleeding. NEUROLOGICAL: Denies altered mental status or loss of consciousness. Denies headache. Denies weakness or paralysis or loss of use of either side. Denies problems with gait or speech. Denies sensory or motor loss. PSYCHIATRIC: Denies suicidal or homicidal ideations 10 Systems are negative unless otherwise specified above Physical Exam - Vital signs Vitals: Temp Resp BP Pulse Ox 98.6 F 22 H 148/90 H 97 12/01/19 17:00 12/01/19 17:00 12/01/19 17:00 12/01/19 17:00 - Notes Notes: PHYSICAL EXAMINATION: GENERAL: Well-appearing, well-nourished and in no acute distress. HEAD: Atraumatic, normocephalic. EYES: Pupils equal round and reactive to light, extraocular movements intact, sclera anicteric, conjunctiva are normal. ENT: nares patent, oropharynx clear without exudates. Moist mucous membranes. NECK: Normal range of motion, supple without lymphadenopathy, no appreciable JVD LUNGS: Lungs clear to auscultation bilaterally and equal. No wheezes rales or rhonchi. HEART: Regular rate and rhythm without murmurs ABDOMEN: Soft, nontender, normal bowel sounds. Patient does have a 4 cm protuberant hernia to the left lower abdomen, patient states it has been there for some time has no pain to the abdomen and less deep palpation at the hernia, otherwise no guarding, no rebound. No masses appreciated. EXTREMITIES: Active full range of motion, no pitting or edema. No cyanosis. 2+ pulses x4 NEUROLOGICAL: At time of evaluation the patient is alert and oriented x3, Glascow coma scale of 15, cranial nerves II through XII are grossly intact, sensations intact, motor is intact, however patient does have difficulty with his lower extremities he states this is since he had the bypass surgery he has had difficulty with leg strength and has frequent falls, there are no signs of nystagmus, there is no pronator drift, there is no facial asymmetry, tongue protrusion is midline, reflexes are equal and bilateral, patient answers all questions appropriately follows commands appropriately. SKIN: Warm, Dry, and intact. Normal turgor, no rashes or lesions noted. Course - Re-evaluation Re-evalutation: 12/01/19 20:19 Patient has been reevaluated several times while in emergency department. Patient has been maintained on a desk monitor without any signs of decompensation. After reviewing the patient's laboratory EKG and radiologic results patient has been found to be intoxicated but otherwise demonstrates hypokalemia without overt symptomatology. Patient has been alert and oriented the entire time in the emergency department and shown no signs of acute neurologic abnormalities. Patient is agreeable with discharge home was mirna cuello a family member to come and drive him home. We did have a lengthy discussion in regards to his alcohol use/abuse. Patient is stable at time of discharge. - Vital Signs Vital signs: Temp Pulse Resp BP Pulse Ox 98.6 F 20 153/83 H 96 12/01/19 17:00 12/01/19 19:01 12/01/19 19:01 12/01/19 19:01 - Laboratory Result Diagrams: 12/01/19 16:53 12/01/19 16:53 Laboratory results interpreted by me: 12/01/19 12/01/19 12/01/19 16:53 16:53 17:53 RBC 3.93 L Hgb 13.4 L MCH 34.1 H Sodium 135.1 L Potassium 3.0 L* Chloride 90 L Carbon Dioxide 32 H Creatinine 1.47 H Est GFR ( Amer) 59 L Est GFR (MDRD) Non-Af 49 L Glucose 125 H AST 75 H Ammonia < 8.7 L Creatine Kinase 33 L Salicylates < 1.0 L Acetaminophen < 10 L - Diagnostic Test Radiology reviewed: Reports reviewed - EKG Interpretation by Me EKG shows normal: Sinus rhythm Rate: Tachycardia Rhythm: NSR When compared to previous EKG there are: No significant change Discharge - Discharge Clinical Impression: Alcoholism /alcohol abuse, Hypokalemia Condition: Stable Disposition: HOME, SELF-CARE Additional Instructions: Hypokalemia You have an abnormally decreased level of serum potassium. Hypokalemia may cause weakness, fatigue, or heart rhythm abnormalities. Sometimes there are no symptoms at all. Usually, low serum potassium is due to taking diuretics (water pills). It can also be due to excessive vomiting or diarrhea. If no obvious cause is evident, further evaluation will be necessary. Treatment is usually oral potassium supplements. Take these exactly as prescribed. You may also want to select foods which are naturally high in potassium -- fruits (such as bananas, cantaloupe, grapes, oranges, prunes, tomatoes), fresh vegetables (potatoes, spinach, beans, peas), orange or tomato juice, tomato pasta sauce, milk, fish (halibut, tuna, salmon, benjie) A follow-up blood test is usually performed to assure that the potassium is returning to normal. Call the physician if you suffer severe weakness, muscle twitching or cramping, palpitations (pounding or irregular heartbeat), or any other new or alarming symptoms.Acute Alcohol Intoxication Your evaluation revealed very high levels of alcohol. You can from drinking a large amount of alcohol rapidly! Further, there's the risk of falls, traffic accidents, and fights. A high portion (about 50 percent) of the serious injuries seen in hospital emergency rooms are caused by alcohol. Alcohol overdosage is usually due to an underlying emotional or psychiatric problem. You may benefit from counselling. If "binge" drinking is an ongoing problem for you, or if you drink ANY A MOUNT of alcohol EVERY day, you most likely have a tendency to alcoholism. You should avoid alcohol totally. We can refer you for treatment. Persons with alcohol problems are often also prone to other addictions -- you should discuss any use of medications or drugs with the doctor. You should be watched at home for the next several hours by someone who has not been drinking. Get extra fluids for the next 24 hours. Call the doctor if there is repeated vomiting, increasing headache, decreasing level of alertness, or any other worsening.
[2019-12-01 18:00] LABS: ABSOLUTE BASOPHILS # (AUTO) 0.1 10^3/uL (0.0-0.2); ABSOLUTE EOSINOPHILS # (AUTO) 0.1 10^3/uL (0.0-0.6); ABSOLUTE LYMPHOCYTES (AUTO) 1.7 10^3/uL (0.5-4.7); ABSOLUTE NEUT (AUTO) 5.9 10^3/uL (1.7-8.2); BASOPHILS % (AUTO) 1.1 % (0-2); EOSINOPHILS % (AUTO) 1.3 % (0-6); HEMATOCRIT 38.3 % (37.9-51.0); HEMOGLOBIN 13.4 g/dL (13.5-17.0); LYMPHOCYTES % (AUTO) 19.5 % (13-45); MEAN CORPUSCULAR HEMOGLOBIN 34.1 pg (27.0-33.4); MEAN CORPUSCULAR VOLUME 97 fl (80-97); PLATELET COUNT 256 10^3/uL (150-450); RED BLOOD COUNT 3.93 10^6/uL (4.35-5.55); RED CELL DISTRIBUTION WIDTH 13.4 % (11.5-14.0); SEGMENTED NEUTROPHILS % (AUTO) 67.1 % (42-78); TOTAL CELLS COUNTED % (AUTO) 100 %; WHITE BLOOD COUNT 8.9 10^3/uL (4.0-10.5)
[2019-12-01 18:06] LABS: INTERNATIONAL RATION (INR) 1.12; PROTHROMBIN TIME 14.4 SEC (11.4-15.4)
--- NOTE | 2019-12-01 18:07 | RADIOLOGY REPORT (SQ) ---
EXAM DESCRIPTION: CT HEAD WITHOUT IMAGES COMPLETED DATE/TIME: 12/01/2019 5:49 pm REASON FOR STUDY: ams COMPARISON: None. TECHNIQUE: Axial images acquired through the brain without intravenous contrast. Images reviewed wi th bone, brain and subdural windows. Images stored on PACS. All CT scanners at this facility use dose modulation, iterative reconstruction, and/or weight based d osing when appropriate to reduce radiation dose to as low as reasonably achievable (ALARA). [facility]: Dose Right [facility]: CareDose [facility]: Dose Right [facility]: Teradose 4D [facility]: [facility] RADIATION DOSE: CT Rad equipment meets quality standard of care and radiation dose reduction techniq ues were employed. CTDIvol: 23.9 mGy. DLP: 457 mGy-cm. mGy. LIMITATIONS: None. FINDINGS: VENTRICLES: Normal size and contour. CEREBRUM: No masses. No hemorrhage. No midline shift. No evidence for acute infarction. Normal gra y/white matter differentiation. No areas of low density in the white matter. CEREBELLUM: No masses. No hemorrhage. No alteration of density. No evidence for acute infarction. EXTRAAXIAL SPACES: No fluid collections. No masses. ORBITS AND GLOBE: No intra- or extraconal masses. Normal contour of globe without masses. CALVARIUM: No fracture. PARANASAL SINUSES: No fluid or mucosal thickening. SOFT TISSUES: No mass or hematoma. OTHER: No other significant finding. IMPRESSION: NORMAL BRAIN CT WITHOUT CONTRAST. EVIDENCE OF ACUTE STROKE: NO. COMMENT: Quality ID # [id number]: Final reports with documentation of one or more dose reduction techniques (e.g., Automated exposure control, adjustment of the mA and/or kV according to patient size, use of iterative reconstruction technique) TECHNICAL DOCUMENTATION: JOB ID: [id number] 2010 [employer]- All Rights Reserved Reading location - IP/workstation name: [email or web address]
[2019-12-01 18:15] LABS: ACETAMINOPHEN < 10 ug/mL (10-30); ALBUMIN 3.5 g/dL (3.5-5.0); ALCOHOL 244 mg/dL (NONE DETECTED); ALKALINE PHOSPHATASE 90 U/L (38-126); ANION GAP 13 (5-19); ASPARTATE AMINO TRANSFERASE 75 U/L (17-59); BILIRUBIN,DIRECT 0.1 mg/dL (0.0-0.4); BILIRUBIN,TOTAL 0.6 mg/dL (0.2-1.3); BLOOD UREA NITROGEN 18 mg/dL (7-20); CALCIUM 9.1 mg/dL (8.4-10.2); CARBON DIOXIDE 32 mmol/L (22-30); CHLORIDE 90 mmol/L (98-107); CREATINE KINASE 33 U/L (55-170); GLUCOSE 125 mg/dL (75-110); SALICYLATE < 1.0 mg/dL (2.0-20.0); TOTAL PROTEIN 7.4 g/dL (6.3-8.2)
--- NOTE | 2019-12-01 18:20 | RADIOLOGY REPORT (SQ) ---
EXAM DESCRIPTION: CHEST SINGLE VIEW IMAGES COMPLETED DATE/TIME: 12/01/2019 6:08 pm REASON FOR STUDY: ams COMPARISON: 01/01/2019 EXAM PARAMETERS: NUMBER OF VIEWS: One view. TECHNIQUE: Single frontal radiographic view of the chest acquired. RADIATION DOSE: NA LIMITATIONS: None. FINDINGS: LUNGS AND PLEURA: There appears to be mild scarring in the left costophrenic angle. MEDIASTINUM AND HILAR STRUCTURES: No masses. Contour normal. HEART AND VASCULAR STRUCTURES: Heart normal in size. Normal vasculature. BONES: No acute findings. HARDWARE: Sternotomy wires. OTHER: No other significant finding. IMPRESSION: NO ACUTE RADIOGRAPHIC FINDING IN THE CHEST. TECHNICAL DOCUMENTATION: JOB ID: [id number] 2010 [employer]- All Rights Reserved Reading location - IP/workstation name: [email or web address]
[2019-12-01 18:27] LABS: APPEARANCE,URINE CLEAR; BILIRUBIN,URINE NEGATIVE (NEGATIVE); COLOR,URINE YELLOW; GLUCOSE, URINE NEGATIVE (NEGATIVE); KETONES,URINE NEGATIVE (NEGATIVE); LEUKOCYTE ESTERASE,URINE NEGATIVE (NEGATIVE); NITRITE,URINE NEGATIVE (NEGATIVE); PROTEIN,URINE NEGATIVE (NEGATIVE); URINE SPECIFIC GRAVITY 1.006; UROBILINOGEN,URINE NEGATIVE mg/dL (<2.0)
[2019-12-01 18:40] LABS: URINE AMPHETAMINES SCREEN NEGATIVE; URINE BARBITURATES SCREEN NEGATIVE; URINE BENZODIAZEPINES SCREEN NEGATIVE; URINE COCAINE SCREEN NEGATIVE; URINE MARIJUANA (THC) SCREEN NEGATIVE; URINE METHADONE SCREEN NEGATIVE; URINE PHENCYCLIDINE SCREEN NEGATIVE
[2019-12-01] MEDS ORDERED: POTASSIUM CHLORIDE 10 MEQ TABLET.ER PO ONE (19:00)
[2019-12-01 20:48] VITALS: BP 122/70
--- NOTE | 2019-12-01 21:54 | EKG REPORT ---
SEVERITY:- ABNORMAL ECG - SINUS TACHYCARDIA LEFT ANTERIOR FASCICULAR BLOCK CONSIDER ANTERIOR INFARCT BORDERLINE PROLONGED QT INTERVAL : Confirmed by: Nani Snell MD 01-Dec-2019 21:53:34
== END 2019-12-01 20:46 | disposition home or self-care (01) ==
LOC: ER 16:49
DX: F10.229 Alcohol dependence with intoxication, unspecified (principal); E87.6 Hypokalemia; J02.9 Acute pharyngitis, unspecified; R29.6 Repeated falls; R00.0 Tachycardia, unspecified; I25.10 Atherosclerotic heart disease of native coronary artery without angina pectoris; I10 Essential (primary) hypertension; I25.2 Old myocardial infarction; K46.9 Unspecified abdominal hernia without obstruction or gangrene; Z95.1 Presence of aortocoronary bypass graft; Z85.830 Personal history of malignant neoplasm of bone; Z88.8 Allergy status to other drugs, medicaments and biological substances
CPT/HCPCS: 36415; 70450; 71045; 80053; 80307; 81001; 82140; 82550; 83690; 84484; 85025; 85610; 93005; 93010; 99283